=== PATIENT | female | born 1960 | race African-American/Black ===

== ENCOUNTER 2017-01-03 15:27 | Inpatient (IN) | payer MEDICAID, OTHER ==
[~2017-01-03] VITALS: Ht 177.8 cm; Wt 54.4 kg
[~2017-01-03 15:27] MED LIST: APIDRA SOL100 UNIT/1 SQ; ASPIR 8181 MG ORAL; ATORVASTATIN CA20 MG ORAL; CARAFATE1 G1 ORAL; Cyclobenzaprine Hcl ORAL; GLIPIZIDE10 MG PO; HUMALOG100 UNIT/4 SUBQ; LANTUS SOL100 UNIT/1 SUBQ; LEVEMIR FL100 UNIT/1 SUBQ; METFORMIN HCL500 M1 ORAL; NORCO 5-325 TA1 EACH ORAL; NORVASC5 MG ORAL; NOVOLOG100 UNITS1 SUBQ; PHENERGAN SUPP25 MG RECTAL; REGLAN10 MG ORAL; REGLAN5 MG ORAL; ZANTAC150 MG ORAL; ZOFRAN4 MG ORAL
[2017-01-03 15:48] VITALS: BP 159/79
[2017-01-03 16:51] LABS: TROPONIN I < 0.30 ng/mL (<=0.30)
[2017-01-03 16:52] VITALS: BP 168/78
[2017-01-03 16:53] LABS: MEAN CORPUSCULAR HEMOGLOBIN 30.2 PG (27.0-31.0); MEAN CORPUSCULAR HGB CONC 32.7 G/DL (32.0-36.0); MEAN CORPUSCULAR VOLUME 92 FL (80-99); MEAN PLATELET VOLUME 6.3 FL (6.5-10.1); PLATELET COUNT 470 K/UL (150-450); RED BLOOD COUNT 4.06 M/UL (4.20-5.40); RED CELL DISTRIBUTION WIDTH 13.8 % (11.6-14.8); WHITE BLOOD COUNT 13.9 K/UL (4.8-10.8)
[2017-01-03 16:54] LABS: ALANINE AMINOTRANSFERASE 33 U/L (3-33); ALBUMIN/GLOBULIN RATIO 1.4 (1.0-2.7); ANION GAP 23 (5-15); ASPARTATE AMINO TRANSFERASE 21 U/L (5-40); CARBON DIOXIDE 23 mEQ/L (20-30); CHLORIDE 90 mEQ/L (98-107); GLOMERULAR FILTRATION RATE > 60 mL/min (>60); HEMOLYSIS 22; LIPASE 27 U/L (< 60); POTASSIUM 4.1 mEQ/L (3.4-4.9); SODIUM 136 mEQ/L (135-145); TOTAL PROTEIN 6.9 g/dL (6.6-8.7)
[2017-01-03 16:55] LABS: APPEARANCE,URINE CLOUDY; KETONES,URINE 2+ (NEGATIVE); LEUKOCYTE ESTERASE ,URINE 3+ (NEGATIVE); NITRITE,URINE POSITIVE (NEGATIVE); PH,URINE 6 (4.5-8.0); PROTEIN,URINE 3+ (NEGATIVE); UROBILINOGEN,URINE NORMAL MG/DL (0.0-1.0)
[2017-01-03] MEDS ORDERED: DuoNeb 0.5-3(2.5)mg/3ml neb HHN PRN (17:15)
[2017-01-03] MEDS ORDERED: Piperacillin/Tazobactam 3.375 GM in NS 110 ML IVPB ONE (17:15)
[2017-01-03] MEDS ORDERED: Morphine Sulfate 4mg/ml Inj IVP PRN (17:15)
[2017-01-03] MEDS ORDERED: LORazepam Inj 2mg/ml 1ml IV PRN (17:15)
[2017-01-03] MEDS ORDERED: Miralax 17gm pkt ORAL PRN (17:15)
[2017-01-03] MEDS ORDERED: ALL DRIPS IN NORMAL SALINE MISC PRN (17:15)
[2017-01-03] MEDS ORDERED: Nitroglycerin Subl 0.4mg tab (Bottle Of 25) SL PRN (17:15)
[2017-01-03 17:16] LABS: BACTERIA,URINE MANY /HPF; RBC,URINE TNTC /HPF (0 - 2); SQUAMOUS EPITHELIAL CELL,UR MANY /LPF (NONE/OCC); WBC,URINE TNTC /HPF (0 - 2)
--- NOTE | 2017-01-03 17:28 | Emergency Room Report ---
History of Present Illness General Chief Complaint: Abdominal Pain Source: Patient Present Illness HPI 56 YO F with known IDDM and previous admit for DKA presents with abd pain, nausea/vomiting today. Denies fever/chills, urinary complaints. States compliance with Insulin. Denies chest pain, SOB. States pain is 10/10, tightening in quality, epigastric, non-radiating. Allergies: Coded Allergies: No Known Allergies (Verified Allergy, Mild, 05/04/10) Patient History Past Medical History: DM Past Surgical History: none Pertinent Family History: none Social History: Denies: alcohol use, drug use, smoking Now: No Immunizations: UTD Reviewed Nursing Documentation: PMH: Agreed, PSxH: Agreed Nursing Documentation-PMH Past Medical History: No History, Except For Hx COPD: Yes Hx Diabetes: Yes Hx Cancer: No Hx Neurological Problems: No Review of Systems All Other Systems: negative except mentioned in HPI Physical Exam Vital Signs Date Time Temp Pulse Resp B/P Pulse Ox O2 Delivery O2 Flow Rate FiO2 01/03/17 15:40 97.9 96 22 159/79 98 Room Air Sp02 EP Interpretation: reviewed, normal General Appearance: normal inspection, well appearing, alert, GCS 15, non-toxic , moderate distress Head: normocephalic, atraumatic Eyes: bilateral eye EOMI, bilateral eye PERRL ENT: normal ENT inspection, hearing grossly normal, normal voice Neck: normal inspection, full range of motion, supple, no bony tend Respiratory: normal inspection, lungs clear, normal breath sounds, no respiratory distress, no retraction, no wheezing Cardiovascular #1: regular rate, rhythm, no edema Gastrointestinal: normal inspection, normal bowel sounds, non tender, soft, no mass, no guarding, no hernia, no pulsatile mass, no rebound Genitourinary: no CVA tenderness Musculoskeletal: normal inspection, back normal, normal range of motion, Alex' s Sign negative Neurologic: normal inspection, alert, oriented x3, responsive, press tender star signal III-XII nml as tested, speech normal Psychiatric: normal inspection, judgement/insight normal, mood/affect normal Procedures Critical Care Time Critical Care Time 30 min Care for 56 YO F with abd pain, vomiting, elevated glucose. History of DKA. ? compliance with insulin VSS. Afebrile. Patient c/o abd pain, vomiting DDx includes sepsis, UTI as cause for ?DKA, HONK Labs show ~500 glucose, elevated AG. Normal K and bicarb. UA with UTI Care included IVF hydration, Insulin gtt started until AG closes, Abx for UTI Care may include administration of vasopressors started to support failing circulatory system, includes frequent re-exam, interpretation of lab studies and consultation with hospitalist/minister assistant. 30 minutes of critical care time was spent with this patient not including time spent performing separately reportable procedures. Medical Decision Making Diagnostic Impression: Primary Impression: hyperglycemia Additional Impressions: Uncontrolled diabetes mellitus Qualified Codes: E13.10 - Other specified diabetes mellitus with ketoacidosis without coma; Z79.4 - thoracic medicine specialist (current) use of insulin UTI (urinary tract infection) Qualified Codes: N30.00 - Acute cystitis without hematuria NATHAN (acute kidney injury) ER Course 56 YO F with ?DKA. Elevated glucose 500, elevated AG. +UTI with + nitrites. Mild NATHAN. Leuks elevated. IVF 2L NS hydration with Insulin gtt started in ED Empiric Abx Zosyn given Patient's abd exam is non-focal, likely pain d/t elevated glucose, UTI. Does not warrant CTAP at this time CXR negative for PNA Endorsed to Dr Raza for JEREMY admission at 526pm EKG Diagnostic Results Rate: normal Rhythm: NSR ST Segments: no acute changes ASA given to the pt in ED: No Rhythm Strip Diag. Results EP Interpretation: yes Rate: 82 Rhythm: NSR, no PVC's, no ectopy Chest X-Ray Diagnostic Results EP Interpretation: Yes Findings: no consolidation, no effusion, no pneumothorax, no acute cardiopulmonary disease Number of Views: 1 Last Vital Signs Date Time Temp Pulse Resp B/P Pulse Ox O2 Delivery O2 Flow Rate FiO2 01/03/17 16:52 97.9 67 19 168/78 98 Room Air Status: improved Disposition: ADMITTED INPATIENT Condition: Critical ARNULFO JARAMILLO M.D. Jan 03, 2017 17:28
[2017-01-03] MEDS ORDERED: Morphine Sulfate 4mg/ml Inj IVP ONE (17:30)
[2017-01-03] MEDS ORDERED: Metoclopramide 10mg/2ml Inj IVP ONE (17:30)
[2017-01-03] MEDS ORDERED: Zosyn 3.375gm inj ONE (17:42)
[2017-01-03 17:52] LABS: ABG ALLEN TEST POSITIVE; ABG BASE EXCESS -0.5; ABG PCO2 24.6 mmHg (35.0-45.0)
[2017-01-03 18:39] VITALS: BP 158/65
[2017-01-03 18:42] LABS: BAND NEUTROPHILS % (MANUAL) 2 % (0-8); LYMPHOCYTES % (MANUAL) 12 % (20-45); NEUTROPHILS % (MANUAL) 84 % (45-75); TOTAL CELLS COUNTED 100
[2017-01-03 18:43] LABS: BASOPHILS % (MANUAL) 0 % (0-2); EOSINOPHILS % (MANUAL) 0 % (0-3); PLATELET ESTIMATE INCREASED
[2017-01-03 18:47] LABS: PLATELET MORPHOLOGY NORMAL
[2017-01-03] MEDS: Heparin 5000 units/ml inj SUBQ SCH (21:17)
[2017-01-03 22:00] VITALS: BP 145/65
[2017-01-03] MEDS: Insulin Rate Change 1 Each MISC PRN ×2 (22:58→23:44)
[2017-01-03 23:00] VITALS: BP 155/66
[2017-01-04] VITALS (9 sets, daily range): BP systolic 115–154; BP diastolic 51–84
[2017-01-04] MEDS: Insulin Rate Change 1 Each MISC PRN ×3 (01:12→04:25)
[2017-01-04 06:00] LABS: MEAN CORPUSCULAR HEMOGLOBIN 30.1 PG (27.0-31.0); MEAN CORPUSCULAR HGB CONC 32.9 G/DL (32.0-36.0); MEAN CORPUSCULAR VOLUME 92 FL (80-99); MEAN PLATELET VOLUME 6.6 FL (6.5-10.1); PLATELET COUNT 424 K/UL (150-450); RED BLOOD COUNT 3.36 M/UL (4.20-5.40); RED CELL DISTRIBUTION WIDTH 13.8 % (11.6-14.8)
[2017-01-04 06:12] LABS: PROTHROMBIN TIME 9.9 SEC (9.30-11.50)
[2017-01-04] MEDS: Heparin 5000 units/ml inj SUBQ SCH ×2 (08:23→22:02)
[2017-01-04 08:34] LABS: BAND NEUTROPHILS % (MANUAL) 0 % (0-8); BASOPHILS % (MANUAL) 0 % (0-2); EOSINOPHILS % (MANUAL) 0 % (0-3); LYMPHOCYTES % (MANUAL) 20 % (20-45); NEUTROPHILS % (MANUAL) 76 % (45-75); PLATELET ESTIMATE ADEQUATE; PLATELET MORPHOLOGY NORMAL; TOTAL CELLS COUNTED 100
[2017-01-04 08:35] LABS: HYPOCHROMASIA 1+
[2017-01-04 09:28] LABS: ALANINE AMINOTRANSFERASE 24 U/L (3-33); ANION GAP 13 (5-15); ASPARTATE AMINO TRANSFERASE 15 U/L (5-40); BILIRUBIN,DIRECT 0.1 mg/dL (0.1-0.3); CALCIUM 8.3 mg/dL (8.6-10.2); CARBON DIOXIDE 28 mEQ/L (20-30); CHLORIDE 104 mEQ/L (98-107); CREATININE 0.8 mg/dL (0.5-0.9); GLOMERULAR FILTRATION RATE > 60 mL/min (>60); HEMOLYSIS 4; PHOSPHORUS 2.5 mg/dL (2.5-4.8); SODIUM 145 mEQ/L (135-145); TOTAL PROTEIN 6.4 g/dL (6.6-8.7)
--- NOTE | 2017-01-04 10:23 | History and Physical ---
History of Present Illness General Date patient seen: Jan 04, 2017 Reason for Hospitalization: Abdominal Pain Present Illness HPI 56 year old with hx of DM, DKA presented to ER with cc of abdominal pain. She had some dental work done and was not able to eat well and didn't take her insulin. She was found to be in DKA in ER, started on insulin drip and transferred to ICU. Allergies: Coded Allergies: No Known Allergies (Verified Allergy, Mild, 05/04/10) Medication History Scheduled Aspirin* (Aspir 81*), 81 MG ORAL DAILY, (Reported) Atorvastatin Calcium* (Atorvastatin Calcium*), 10 MG ORAL BEDTIME, (Reported) Glipizide (Glipizide), 10 MG PO DAILY, (Reported) Insulin Detemir (Levemir Flexpen), 20 UNITS SUBQ BEDTIME Insulin Glulisine (Apidra Solostar), 5 UNIT SQ DAILY, (Reported) Metformin Hcl* (Metformin Hcl*), 500 MG ORAL DAILY, (Reported) Patient History Healthcare decision maker Resuscitation status Advanced Directive on File Past Medical/Surgical History Past Medical/Surgical History: (1) Gastroparesis due to DM (2) Uncontrolled diabetes mellitus Review of Systems Constitutional: Reports: malaise, weakness Gastrointestinal: Reports: diarrhea, nausea Physical Exam General Appearance: WD/WN, no apparent distress Lines, tubes and drains: peripheral, central line HEENT: normocephalic, atraumatic Neck: non-tender, normal alignment Cardiovascular/Chest: normal peripheral pulses, normal rate Abdomen: normal bowel sounds, non tender Genitourinary/Rectal: normal genital exam, normal rectal exam Last 24 Hour Vital Signs Date Time Temp Pulse Resp B/P Pulse Ox O2 Delivery O2 Flow Rate FiO2 01/04/17 09:00 78 22 115/61 100 Nasal Cannula 2.0 01/04/17 08:00 98.0 77 22 135/78 100 Nasal Cannula 2.0 01/04/17 08:00 78 01/04/17 07:00 76 21 139/61 100 Nasal Cannula 2.0 01/04/17 04:00 77 01/04/17 01:00 77 21 121/54 100 Nasal Cannula 2.0 01/04/17 00:00 97.7 82 21 117/51 100 Nasal Cannula 2.0 01/03/17 23:00 100 Nasal Cannula 2.0 28 01/03/17 23:00 Nasal Cannula 2.0 28 01/03/17 23:00 84 21 155/66 100 Nasal Cannula 2.0 01/03/17 23:00 73 16 Nasal Cannula 2.0 28 01/03/17 22:28 97.9 01/03/17 22:00 97.8 97 21 145/65 100 Nasal Cannula 2.0 01/03/17 21:12 91 01/03/17 20:55 97.9 83 19 158/65 100 Room Air 01/03/17 18:39 97.9 83 19 158/65 100 Room Air 01/03/17 18:11 97.9 01/03/17 16:52 97.9 67 19 168/78 98 Room Air 01/03/17 15:48 97.9 87 22 159/79 98 Room Air 01/03/17 15:40 97.9 96 22 159/79 98 Room Air Intake and Output 01/03/17 01/04/17 19:00 07:00 Intake Total 2110 ml 1523.03 ml Output Total 300 ml Balance 2110 ml 1223.03 ml Intake IV Total 2110 ml 1523.03 ml Output Urine Total 300 ml # Voids 2 1 # Bowel Movements 3 Laboratory Tests Test 01/03/17 16:09 01/03/17 16:40 01/03/17 17:04 01/04/17 04:30 White Blood Count 13.9 K/UL (4.8-10.8) H 18.0 K/UL (4.8-10.8) H Red Blood Count 4.06 M/UL (4.20-5.40) L 3.36 M/UL (4.20-5.40) L Hemoglobin 12.2 G/DL (12.0-16.0) 10.1 G/DL (12.0-16.0) L Hematocrit 37.4 % (37.0-47.0) 30.7 % (37.0-47.0) L Mean Corpuscular Volume 92 FL (80-99) 92 FL (80-99) Mean Corpuscular Hemoglobin 30.2 PG (27.0-31.0) 30.1 PG (27.0-31.0) Mean Corpuscular Hemoglobin Concent 32.7 G/DL (32.0-36.0) 32.9 G/DL (32.0-36.0) Red Cell Distribution Width 13.8 % (11.6-14.8) 13.8 % (11.6-14.8) Platelet Count 470 K/UL (150-450) H 424 K/UL (150-450) Mean Platelet Volume 6.3 FL (6.5-10.1) L 6.6 FL (6.5-10.1) Neutrophils (%) (Auto) % (45.0-75.0) % (45.0-75.0) Lymphocytes (%) (Auto) % (20.0-45.0) % (20.0-45.0) Monocytes (%) (Auto) % (1.0-10.0) % (1.0-10.0) Eosinophils (%) (Auto) % (0.0-3.0) % (0.0-3.0) Basophils (%) (Auto) % (0.0-2.0) % (0.0-2.0) Differential Total Cells Counted 100 100 Neutrophils % (Manual) 84 % (45-75) H 76 % (45-75) H Lymphocytes % (Manual) 12 % (20-45) L 20 % (20-45) Monocytes % (Manual) 2 % (1-10) 4 % (1-10) Eosinophils % (Manual) 0 % (0-3) 0 % (0-3) Basophils % (Manual) 0 % (0-2) 0 % (0-2) Band Neutrophils 2 % (0-8) 0 % (0-8) Platelet Estimate Increased H Adequate Platelet Morphology Normal Normal Red Blood Cell Morphology Normal Sodium Level 136 mEQ/L (135-145) Potassium Level 4.1 mEQ/L (3.4-4.9) Chloride Level 90 mEQ/L (98-107) L Carbon Dioxide Level 23 mEQ/L (20-30) Anion Gap 23 (5-15) H Blood Urea Nitrogen 17 mg/dL (7-23) Creatinine 1.0 mg/dL (0.5-0.9) H Estimat Glomerular Filtration Rate > 60 mL/min (>60) Glucose Level 428 mg/dL (74-106) H Calcium Level 10.0 mg/dL (8.6-10.2) Total Bilirubin 0.3 mg/dL (0.0-1.2) Aspartate Amino Transf (AST/SGOT) 21 U/L (5-40) Alanine Aminotransferase (ALT/SGPT) 33 U/L (3-33) Alkaline Phosphatase 232 U/L (35-104) H Troponin I < 0.30 ng/mL (<=0.30) Total Protein 6.9 g/dL (6.6-8.7) Albumin 4.1 g/dL (3.5-5.2) Globulin 2.8 g/dL Albumin/Globulin Ratio 1.4 (1.0-2.7) Lipase 27 U/L (< 60) Urine Color Yellow Urine Appearance Cloudy Urine pH 6 (4.5-8.0) Urine Specific Kiefer 1.010 (1.005-1.035) Urine Protein 3+ (NEGATIVE) H Urine Glucose (UA) 4+ (NEGATIVE) H Urine Ketones 2+ (NEGATIVE) H Urine Occult Blood 5+ (NEGATIVE) H Urine Nitrite Positive (NEGATIVE) H Urine Bilirubin Negative (NEGATIVE) Urine Urobilinogen Normal MG/DL (0.0-1.0) Urine Leukocyte Esterase 3+ (NEGATIVE) H Urine RBC Tntc /HPF (0 - 2) H Urine WBC Tntc /HPF (0 - 2) H Urine Squamous Epithelial Cells Many /LPF (NONE/OCC) H Urine Bacteria Many /HPF (NONE) H Arterial Blood pH 7.542 (7.350-7.450) Arterial Blood Partial Pressure CO2 24.6 mmHg (35.0-45.0) *L Arterial Blood Partial Pressure O2 111.7 mmHg (75.0-100.0) H Arterial Blood HCO3 20.7 mmol/L (22.0-26.0) L Arterial Blood Oxygen Saturation 97.0 % (92.0-98.0) Arterial Blood Base Excess -0.5 Eric Test Positive Hypochromasia 1+ Prothrombin Time 9.9 SEC (9.30-11.50) Prothromb Time International Ratio 1.0 (0.9-1.1) Activated Partial Thromboplast Time 28 SEC (23-33) Test 01/04/17 08:45 Sodium Level 145 mEQ/L (135-145) Potassium Level 4.0 mEQ/L (3.4-4.9) Chloride Level 104 mEQ/L (98-107) Carbon Dioxide Level 28 mEQ/L (20-30) Anion Gap 13 (5-15) Blood Urea Nitrogen 14 mg/dL (7-23) Creatinine 0.8 mg/dL (0.5-0.9) Estimat Glomerular Filtration Rate > 60 mL/min (>60) Glucose Level 113 mg/dL (74-106) #H Calcium Level 8.3 mg/dL (8.6-10.2) L Phosphorus Level 2.5 mg/dL (2.5-4.8) Total Bilirubin 0.2 mg/dL (0.0-1.2) Direct Bilirubin 0.1 mg/dL (0.1-0.3) Aspartate Amino Transf (AST/SGOT) 15 U/L (5-40) Alanine Aminotransferase (ALT/SGPT) 24 U/L (3-33) Alkaline Phosphatase 175 U/L (35-104) H Total Protein 6.4 g/dL (6.6-8.7) L Albumin 3.2 g/dL (3.5-5.2) L Microbiology Date/Time Source Procedure Growth Status 01/03/17 16:40 Urine,Clean Catch Urine Culture - Preliminary Gram Negative Bacillus 1 Resulted Height (Feet): 5 Height (Inches): 10.00 Weight (Pounds): 120 Medications Current Medications Medications (Trade) Dose Ordered Sig/Usha Route PRN Reason Start Time Stop Time Status Last Admin Dose Admin Acetaminophen (Tylenol) 650 mg Q4H PRN ORAL T>100.5 01/03/17 17:15 02/02/17 17:14 01/04/17 08:13 Albuterol/ Ipratropium 3 ml 3 ml Q4H PRN HHN Shortness of Breath 01/03/17 17:15 01/08/17 17:14 Dextrose (Dextrose 50%) PRN PRN IV HYPOGLYCEMIA 01/03/17 17:15 02/02/17 17:14 Heparin Sodium (Porcine) (Heparin 5000 units/ml) 5,000 units EVERY 12 HOURS SUBQ 01/03/17 21:00 02/02/17 20:59 01/04/17 08:23 Insulin Human Regular (NovoLIN R) 5 units PRN PRN IV BS 200-299 01/03/17 17:15 02/02/17 17:14 01/03/17 22:58 Insulin Human Regular (NovoLIN R) 10 units PRN PRN IV BS=>300 01/03/17 17:15 02/02/17 17:14 01/03/17 21:59 Insulin Human Regular/Sodium Chloride (NovoLIN R/ Sodium Chloride) 101 ml @ 0 mls/hr Q24H IV 01/04/17 07:00 02/03/17 06:59 01/04/17 07:00 Lorazepam (Ativan 2mg/ml 1ml) 2 mg Q2H PRN IV agitation 01/03/17 17:15 01/10/17 17:14 Miscellaneous Medication (Insulin Rate Change) 1 ea PRN PRN MISC BLOOD SUGAR SCALE 01/03/17 17:15 02/02/17 17:14 01/04/17 04:25 Morphine Sulfate (Morphine Sulfate) 4 mg Q4H PRN IVP Severe Pain (Pain Scale 7-10) 01/03/17 17:15 01/10/17 17:14 01/03/17 21:58 Nitroglycerin (Ntg) 0.4 mg Q5M PRN SL Prn Chest Pain 01/03/17 17:15 02/02/17 17:14 Ondansetron HCl (Zofran) 4 mg Q6H PRN IVP Nausea & Vomiting 01/03/17 17:15 02/02/17 17:14 01/04/17 08:12 Polyethylene Glycol (Miralax) 17 gm DAILYPRN PRN ORAL Constipation 01/03/17 17:15 02/02/17 17:14 Sodium Chloride (Sodium Chloride 1000ml bag) 1,000 ml @ 150 mls/hr Q6H40M IV 01/03/17 20:00 02/02/17 19:59 01/04/17 08:26 Assessment/Plan Problem List: (1) DKA (diabetic ketoacidoses) ICD Codes: E13.10 - DKA (diabetic ketoacidoses) SNOMED: 460022605 (2) gastroparesis (3) Abdominal pain ICD Codes: R10.9 - Unspecified abdominal pain SNOMED: 47025166 Assessment/Plan improving insulin drip until anion gap closes IV fluids sliding scale symptomatic treatment ANTWAN DYER Jan 04, 2017 10:23
--- NOTE | 2017-01-04 10:55 | Diagnostic Imaging Report ---
Indication: PAIN Technique: One view of the chest Comparison: none Findings: There is equivocal slight increased density in the right lung apex is compared to the left. This may just be due to prominent distal first costochondral junction, which is also evident previously, but apical mass lesion not excludable. The lungs and pleural spaces are otherwise clear. The heart size is normal area Impression: Equivocal right apical opacity, mass or infiltrate not completely excludable. Recommend followup chest radiographs as indicated, consider CT if density persists No acute process otherwise
[2017-01-04] MEDS ORDERED: Nitroglycerin Subl 0.4mg tab (Bottle Of 25) SL PRN ×3 (11:30→17:15)
[2017-01-04] MEDS ORDERED: NovoLOG Insulin Flexpen SUBQ SCH ×3 (11:30)
[2017-01-04] MEDS ORDERED: DuoNeb 0.5-3(2.5)mg/3ml neb HHN PRN ×3 (13:15→17:15)
[2017-01-04] MEDS ORDERED: LORazepam Inj 2mg/ml 1ml IV PRN ×3 (13:15→17:15)
[2017-01-04] MEDS ORDERED: Morphine Sulfate 4mg/ml Inj IVP PRN ×2 (13:15→17:15)
[2017-01-04] MEDS: NovoLOG Insulin Flexpen SUBQ SCH ×3 (14:12→22:03)
[2017-01-04] MEDS: Morphine Sulfate 4mg/ml Inj IVP PRN ×2 (14:57→22:25)
[2017-01-04] MEDS ORDERED: Miralax 17gm pkt ORAL PRN ×3 (17:15)
--- NOTE | 2017-01-04 18:27 | Consultation ---
Consult Note Consult Note ID CONSULT: Dict# [id number] Assessment/Plan ASSESSMENT: 56 y/o female with: // GNR UTI - C&S pending // Elevated ALP r/o hepatobiliary disease // Leukocytosis - worsening, afebrile // DKA // NKDA // Full Code PLAN: - broaden levaquin d# 1 to cefepime given worsening leukocytosis - check abdo US - f/u C&S - monitor CBC, temperatures - monitor BMP Thanks! Will follow OLIVIA TORRES Jan 04, 2017 18:27
[2017-01-04] MEDS: Cefepime HCl 1 GM in D5W 55 ML IVPB SCH ×2 (20:24→21:06)
[2017-01-04] MEDS ORDERED: Heparin 5000 units/ml inj SUBQ SCH ×2 (21:00)
[2017-01-05] VITALS: BP 93/46
--- NOTE | 2017-01-05 00:08 | Consultation ---
DATE OF CONSULTATION: 01/04/2017 REASON FOR CONSULTATION: Urinary tract infection. HISTORY OF PRESENT ILLNESS: This is a 56-year-old, uncontrolled diabetic female admitted on 01/03/2017 with nausea, vomiting, and abdominal pain. She was found to be in diabetic ketoacidosis. She has evidence of a leukocytosis and urinalysis suggested urinary tract infection. Urine culture is now growing greater than 100,000 colony-forming units of gram-negative rods. Chest x-ray shows no acute findings. She has been started on empiric Levaquin day #1 and ID now consulted to assist in management. PAST MEDICAL HISTORY: Uncontrolled diabetes. PAST SURGICAL HISTORY: None. FAMILY HISTORY: Noncontributory. SOCIAL HISTORY: Unremarkable. ALLERGIES: No known drug allergies. MEDICATIONS: 1. Levaquin day #1. 2. Subcutaneous heparin. REVIEW OF SYSTEMS: As per history of present illness. Ten systems were reviewed. All pertinent positives and negatives noted. PHYSICAL EXAMINATION: VITAL SIGNS: Maximum temperature 98 degrees F, blood pressure 154/84, heart rate in the 90s, respiratory rate 20, and saturating 98% on room air. GENERAL: No apparent distress. Nontoxic appearing. CARDIOVASCULAR: Regular rate and rhythm. No murmurs. PULMONARY: Clear to auscultation bilaterally. ABDOMEN: Bowel sounds present. Soft, nondistended, and nontender. EXTREMITIES: Edema. LABORATORY DATA: White blood cell count is 18, hemoglobin 10.1, platelets 424,000, sodium 145, potassium 4, chloride 104, bicarbonate 28, BUN 14, and creatinine 0.8. AST 15, ALT 24, alkaline phosphatase 175, total bilirubin 0.2, albumin 3.2. Troponin negative x1. MICROBIOLOGY: On 01/03/2017, urine culture greater than 100,000 colony-forming units of gram-negative rods. IMAGING: On 01/03/2017, chest x-ray no acute findings. ASSESSMENT: 1. Gram-negative anabella, urinary tract infection. Culture and sensitivity is pending. 2. Elevated alkaline phosphatase, rule out hepatobiliary disease. 3. Leukocytosis, worsening and afebrile. 4. Diabetic ketoacidosis. 5. No known drug allergies. 6. Full Code. PLAN: 1. Broaden Levaquin day #1 to cefepime given worsening leukocytosis. 2. Check abdominal ultrasound. 3. Follow up cultures and sensitivity. 4. Monitor CBC and temperatures. 5. Monitor BMP. Chester Hickey M.D. DR: KIRA JOB#: [id number] CC:
[2017-01-05 04:00] VITALS: BP 117/69
[2017-01-05] MEDS: NovoLOG Insulin Flexpen SUBQ SCH ×7 (05:06→20:32)
[2017-01-05] MEDS: Levemir Flexpen SUBQ SCH (06:59)
[2017-01-05] MEDS: Morphine Sulfate 4mg/ml Inj IVP PRN ×2 (07:05→19:32)
[2017-01-05 08:00] VITALS: BP 138/73
[2017-01-05] MEDS: Cefepime HCl 1 GM in D5W 55 ML IVPB SCH ×2 (09:06→20:30)
[2017-01-05] MEDS: Heparin 5000 units/ml inj SUBQ SCH ×2 (09:12→20:31)
--- NOTE | 2017-01-05 09:28 | Consultation ---
DATE OF CONSULTATION: 01/05/2017 ENDOCRINOLOGY CONSULTATION CONSULTING PHYSICIAN: Johnny Nettles M.D. REFERRING PHYSICIAN: Shahzad Raza M.D. REASON FOR CONSULTATION: Diabetes management. HISTORY OF PRESENT ILLNESS: The patient is a 56-year-old female with history of insulin-dependent diabetes, who presented to the hospital 3 days ago with diabetic ketoacidosis. She was treated with IV fluids and IV insulin and after the anion gap was closed, was transferred to the floor. This morning, she is NPO for abdominal ultrasound. The glucose was too high to be read by the Accu-Chek machine and by the laboratory is over 600. The chemistry is pending. PAST MEDICAL HISTORY: 1. Gastroparesis due to diabetes. 2. Uncontrolled diabetes. MEDICATIONS: As an outpatient, reviewed and reconciled. FAMILY HISTORY: Noncontributory. REVIEW OF SYSTEMS: As per history of present illness. PHYSICAL EXAMINATION: GENERAL: The patient is arousable. VITAL SIGNS: Blood pressure is 117/69, pulse 94, temp 98.1, and respiratory rate 18. HEENT: Pupils are equal and reactive to light. Sclerae are anicteric. NECK: No jugular venous distention. HEART: Regular. LUNGS: Clear. ABDOMEN: Positive bowel sounds. EXTREMITIES: Trace edema. LABORATORY VALUES: WBC 18, hemoglobin 10, hematocrit 30.7, and platelets of 100,000. Sodium is 145, potassium 4, chloride 104, bicarb 28, BUN 14, creatinine 0.8, glucose 113 yesterday morning and now is 673. DIAGNOSES: 1. Diabetic ketoacidosis on presentation, resolved 2. Uncontrolled diabetes. 3. Abdominal pain. 4. Diarrhea. PLAN: 1. Increase intravenous fluids with normal saline 250 mL per hour. 2. Start Levemir 24 units daily, first dose now. 3. NovoLog 6 units before each meal. 4. Sliding scale insulin. Further adjustment according to blood glucose values. Thank you, Dr. Raza, for the request of this consultation. Johnny Nettles M.D. DR: EDIL/MATTY JOB#: [id number] CC: TIGRE
[2017-01-05 12:00] VITALS: BP 125/78
[2017-01-05 16:00] VITALS: BP 134/64
--- NOTE | 2017-01-05 16:11 | Infectious Diseases Prog Note ---
Assessment/Plan Assessment/Plan ASSESSMENT: 56 y/o female with: // E.coli UTI - asymptomatic // Elevated ALP - US: Essentially unremarkable exam // Leukocytosis - worsening, afebrile. No repeat CBC // DKA // NKDA // Full Code PLAN: - continue cefepime d# 2 ( ABX d# 3 / 5 ) ( 01/04 SP levaquin d# 1 ) - monitor CBC, temperatures - CBC AM - monitor BMP - glucose control Subjective Allergies: Coded Allergies: No Known Allergies (Verified Allergy, Mild, 05/04/10) Subjective remains afebrile. hungry abdominal pain, N/V improved Objective Vital Signs Last 24 Hour Vital Signs Date Time Temp Pulse Resp B/P Pulse Ox O2 Delivery O2 Flow Rate FiO2 01/05/17 12:00 97.7 86 20 125/78 97 Room Air 01/05/17 08:00 98.1 81 19 138/73 99 Room Air 01/05/17 04:00 98.1 94 18 117/69 97 Room Air 01/05/17 00:00 98.2 90 18 93/46 97 Room Air 01/04/17 22:25 98.1 01/04/17 20:00 98.1 90 22 138/67 98 Room Air 01/04/17 19:46 98 Nasal Cannula 2.0 28 01/04/17 19:46 Nasal Cannula 2.0 28 01/04/17 19:45 81 16 Nasal Cannula 2.0 28 01/04/17 16:29 98.2 93 20 154/84 98 Room Air Height (Feet): 5 Height (Inches): 10.00 Weight (Pounds): 120 General Appearance: no acute distress Respiratory/Chest: no respiratory distress Cardiovascular: normal rate, regular rhythm Abdomen: normal bowel sounds, soft, non tender, non distended Microbiology Date/Time Source Procedure Growth Status 01/03/17 16:40 Urine,Clean Catch Urine Culture - Final Escherichia Coli Complete Laboratory Tests Test 01/05/17 05:10 Glucose Level 673 mg/dL (74-106) #*H Current Medications Medications (Trade) Dose Ordered Sig/Usha Route PRN Reason Start Time Stop Time Status Last Admin Dose Admin Albuterol/ Ipratropium (DuoNeb 0.5-3(2.5)mg/3ml) 3 ml Q4H PRN HHN Shortness of Breath 01/04/17 13:15 01/09/17 13:14 Cefepime HCl 1 gm/ Dextrose 55 ml @ 110 mls/hr EVERY 12 HOURS IVPB 01/04/17 20:00 01/11/17 19:59 01/05/17 09:06 Dextrose (Dextrose 50%) STAT PRN IV Hypoglycemia 01/05/17 06:30 02/04/17 06:29 Heparin Sodium (Porcine) (Heparin 5000 units/ml) 5,000 units EVERY 12 HOURS SUBQ 01/04/17 21:00 02/03/17 20:59 01/05/17 09:12 Insulin Aspart (NovoLOG) BEFORE MEALS AND HS SUBQ 01/04/17 14:00 02/03/17 13:59 01/05/17 05:06 Insulin Aspart (NovoLOG) 8 units NOVOTIAC SUBQ 01/05/17 06:30 02/04/17 06:29 Insulin Detemir (Levemir) 24 units DAILY SUBQ 01/05/17 09:00 02/04/17 08:59 01/05/17 06:59 Lorazepam (Ativan 2mg/ml 1ml) 2 mg Q2H PRN IV agitation 01/04/17 13:15 01/11/17 13:14 01/04/17 18:32 Morphine Sulfate (Morphine Sulfate) 4 mg Q4H PRN IVP Severe Pain (Pain Scale 7-10) 01/04/17 13:15 01/11/17 13:14 01/05/17 07:05 Nitroglycerin (Ntg) 0.4 mg Q5M PRN SL Prn Chest Pain 01/04/17 11:30 02/03/17 11:29 Ondansetron HCl (Zofran) 4 mg Q6H PRN IVP Nausea & Vomiting 01/04/17 17:15 02/03/17 17:14 01/04/17 18:24 Polyethylene Glycol 17 gm 17 gm DAILYPRN PRN ORAL Constipation 01/04/17 17:15 02/03/17 17:14 Sodium Chloride (Sodium Chloride 1000ml bag) 1,000 ml @ 150 mls/hr Q6H40M IV 01/05/17 06:00 02/04/17 05:59 01/05/17 12:37 OLIVIA TORRES Jan 05, 2017 16:11
[2017-01-05 19:00] VITALS: BP 152/84
[2017-01-05] MEDS ORDERED: Tubing IV Secondary IV ONE (21:27)
[2017-01-05] MEDS ORDERED: NS 550ML IV ONE (21:27)
[2017-01-06 00:29] VITALS: BP 157/79
[2017-01-06] MEDS: Morphine Sulfate 4mg/ml Inj IVP PRN ×5 (00:50→21:36)
[2017-01-06 04:15] VITALS: BP 152/80
[2017-01-06] MEDS: NovoLOG Insulin Flexpen SUBQ SCH ×7 (06:25→21:35)
[2017-01-06 07:13] LABS: BASOPHILS % (AUTO) 0.9 % (0.0-2.0); EOSINOPHILS % (AUTO) 1.6 % (0.0-3.0); LYMPHOCYTES % (AUTO) 32.1 % (20.0-45.0); MEAN CORPUSCULAR HEMOGLOBIN 30.3 PG (27.0-31.0); MEAN CORPUSCULAR HGB CONC 33.4 G/DL (32.0-36.0); MEAN CORPUSCULAR VOLUME 91 FL (80-99); MEAN PLATELET VOLUME 6.5 FL (6.5-10.1); MONOCYTES % (AUTO) 4.3 % (1.0-10.0); PLATELET COUNT 427 K/UL (150-450); RED BLOOD COUNT 3.33 M/UL (4.20-5.40); RED CELL DISTRIBUTION WIDTH 13.7 % (11.6-14.8); WHITE BLOOD COUNT 8.8 K/UL (4.8-10.8)
--- NOTE | 2017-01-06 07:42 | General Progress Note ---
Assessment/Plan Problem List: (1) DKA (diabetic ketoacidoses) ICD Codes: E13.10 - DKA (diabetic ketoacidoses) SNOMED: 425126822 (2) gastroparesis (3) UTI (urinary tract infection) ICD Codes: N39.0 - Urinary tract infection, site not specified SNOMED: 74765589 Qualifiers: Qualified Codes: N30.00 - Acute cystitis without hematuria (4) Uncontrolled diabetes mellitus ICD Codes: E11.65 - Type 2 diabetes mellitus with hyperglycemia SNOMED: 591388807 Qualifiers: Qualified Codes: E13.10 - Other specified diabetes mellitus with ketoacidosis without coma; Z79.4 - snf (current) use of insulin (5) hyperglycemia Assessment/Plan continue Levemir 24 units qam reduce Novolog to 6 units ac tid continue SSI Subjective Allergies: Coded Allergies: No Known Allergies (Verified Allergy, Mild, 05/04/10) All Systems: reviewed and negative except above Subjective events noted glycemic control improved Objective Last 24 Hour Vital Signs Date Time Temp Pulse Resp B/P Pulse Ox O2 Delivery O2 Flow Rate FiO2 01/06/17 04:15 98.7 71 18 152/80 99 Room Air 01/06/17 00:29 97.3 19 157/79 98 Room Air 01/05/17 20:02 98.1 01/05/17 19:00 97.2 86 20 152/84 100 Room Air 01/05/17 19:00 97 Nasal Cannula 2.0 28 01/05/17 19:00 85 16 Nasal Cannula 2.0 28 01/05/17 19:00 Nasal Cannula 2.0 28 01/05/17 16:00 98.1 81 20 134/64 99 Room Air 01/05/17 12:00 97.7 86 20 125/78 97 Room Air 01/05/17 09:39 Nasal Cannula 2.0 28 01/05/17 09:39 80 16 Nasal Cannula 2.0 28 01/05/17 09:39 98 Nasal Cannula 2.0 28 01/05/17 08:00 98.1 81 19 138/73 99 Room Air Intake and Output 01/05/17 01/06/17 19:00 07:00 Intake Total 955 ml 240 ml Output Total 200 ml Balance 955 ml 40 ml Intake Oral 240 ml IV Total 955 ml Emesis 200 ml # Voids 1 6 Laboratory Tests 01/06/17 04:35: White Blood Count 8.8, Red Blood Count 3.33L, Hemoglobin 10.1L, Hematocrit 30.3L , Mean Corpuscular Volume 91, Mean Corpuscular Hemoglobin 30.3, Mean Corpuscular Hemoglobin Concent 33.4, Red Cell Distribution Width 13.7, Platelet Count 427, Mean Platelet Volume 6.5, Neutrophils (%) (Auto) 61.0, Lymphocytes (% ) (Auto) 32.1, Monocytes (%) (Auto) 4.3, Eosinophils (%) (Auto) 1.6, Basophils ( %) (Auto) 0.9 Height (Feet): 5 Height (Inches): 10.00 Weight (Pounds): 120 General Appearance: no apparent distress EENT: pale conjunctivae Neck: normal alignment Cardiovascular: normal rate Respiratory/Chest: decreased breath sounds Abdomen: normal bowel sounds Objective Current Medications Medications (Trade) Dose Ordered Sig/Usha Route PRN Reason Start Time Stop Time Status Last Admin Dose Admin Albuterol/ Ipratropium (DuoNeb 0.5-3(2.5)mg/3ml) 3 ml Q4H PRN HHN Shortness of Breath 01/04/17 13:15 01/09/17 13:14 Cefepime HCl 1 gm/ Dextrose 55 ml @ 110 mls/hr EVERY 12 HOURS IVPB 01/04/17 20:00 01/11/17 19:59 01/05/17 20:30 Dextrose (Dextrose 50%) STAT PRN IV Hypoglycemia 01/05/17 06:30 02/04/17 06:29 01/05/17 16:41 Heparin Sodium (Porcine) (Heparin 5000 units/ml) 5,000 units EVERY 12 HOURS SUBQ 01/04/17 21:00 02/03/17 20:59 01/05/17 20:31 Insulin Aspart (NovoLOG) BEFORE MEALS AND HS SUBQ 01/04/17 14:00 02/03/17 13:59 01/06/17 06:26 Insulin Aspart (NovoLOG) 8 units NOVOTIAC SUBQ 01/05/17 06:30 02/04/17 06:29 01/06/17 06:25 Insulin Detemir (Levemir) 24 units DAILY SUBQ 01/05/17 09:00 02/04/17 08:59 01/05/17 06:59 Lorazepam (Ativan 2mg/ml 1ml) 2 mg Q2H PRN IV agitation 01/04/17 13:15 01/11/17 13:14 01/04/17 18:32 Morphine Sulfate (Morphine Sulfate) 4 mg Q4H PRN IVP Severe Pain (Pain Scale 7-10) 01/04/17 13:15 01/11/17 13:14 01/06/17 06:21 Nitroglycerin (Ntg) 0.4 mg Q5M PRN SL Prn Chest Pain 01/04/17 11:30 02/03/17 11:29 Ondansetron HCl (Zofran) 4 mg Q6H PRN IVP Nausea & Vomiting 01/04/17 17:15 02/03/17 17:14 01/06/17 00:46 Polyethylene Glycol 17 gm 17 gm DAILYPRN PRN ORAL Constipation 01/04/17 17:15 02/03/17 17:14 Sodium Chloride (Sodium Chloride 1000ml bag) 1,000 ml @ 150 mls/hr Q6H40M IV 01/05/17 06:00 02/04/17 05:59 01/06/17 02:00 Item Value Date Time Bedside Blood Glucose 123 mg/dl H 01/06/17 0626 Bedside Blood Glucose 114 mg/dl 01/05/17 2100 Bedside Blood Glucose 204 mg/dl H 01/05/17 1700 Bedside Blood Glucose 191 mg/dl H 01/05/17 1150 Bedside Blood Glucose 673 mg/dl H 01/05/17 0659 NILS OSORIO Jan 06, 2017 07:42
[2017-01-06 08:12] VITALS: BP 140/68
[2017-01-06] MEDS: Heparin 5000 units/ml inj SUBQ SCH ×2 (09:01→21:36)
[2017-01-06] MEDS: Levemir Flexpen SUBQ SCH (09:09)
[2017-01-06] MEDS: Cefepime HCl 1 GM in D5W 55 ML IVPB SCH ×2 (09:11→21:37)
[2017-01-06 11:27] VITALS: BP 151/81
[2017-01-06 16:00] VITALS: BP 137/78
[2017-01-06 20:00] VITALS: BP 142/76
--- NOTE | 2017-01-06 23:24 | Pulmonology Progress Note ---
Assessment/Plan Problems: (1) DKA (diabetic ketoacidoses) (2) gastroparesis (3) Abdominal pain Assessment/Plan Plan improving insulin drip until anion gap closes IV fluids sliding scale Subjective ROS Limited/Unobtainable: No Constitutional: Reports: anorexia, fatigue Neurologic: Reports: weakness Allergies: Coded Allergies: No Known Allergies (Verified Allergy, Mild, 05/04/10) Objective Last 24 Hour Vital Signs Date Time Temp Pulse Resp B/P Pulse Ox O2 Delivery O2 Flow Rate FiO2 01/06/17 20:00 99.1 75 20 142/76 100 Room Air 01/06/17 18:57 95 Nasal Cannula 2.0 01/06/17 18:57 Nasal Cannula 2.0 01/06/17 18:57 73 16 Nasal Cannula 2.0 01/06/17 16:00 97.6 80 21 137/78 99 Room Air 01/06/17 11:27 98.1 74 20 151/81 99 Room Air 01/06/17 08:18 100 Room Air 01/06/17 08:18 79 16 Room Air 01/06/17 08:18 Room Air 01/06/17 08:12 97.7 82 20 140/68 99 Room Air 01/06/17 04:15 98.7 71 18 152/80 99 Room Air 01/06/17 00:29 97.3 19 157/79 98 Room Air Intake and Output 01/05/17 01/06/17 19:00 07:00 Intake Total 955 ml 240 ml Output Total 200 ml Balance 955 ml 40 ml Intake Oral 240 ml IV Total 955 ml Emesis 200 ml # Voids 1 6 General Appearance: other - skin turgor improving HEENT: normocephalic, atraumatic, PERRL Respiratory/Chest: chest wall non-tender, decreased breath sounds, accessory muscle use Breasts: no masses Cardiovascular: normal peripheral pulses, normal rate, regular rhythm, no JVD Abdomen: normal bowel sounds, soft, non tender, no organomegaly Genitourinary: normal external genitalia Extremities: no cyanosis Skin: no rash, no lesions 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, no motor/sensory deficits Laboratory Tests 01/06/17 04:35: White Blood Count 8.8, Red Blood Count 3.33L, Hemoglobin 10.1L, Hematocrit 30.3L , Mean Corpuscular Volume 91, Mean Corpuscular Hemoglobin 30.3, Mean Corpuscular Hemoglobin Concent 33.4, Red Cell Distribution Width 13.7, Platelet Count 427, Mean Platelet Volume 6.5, Neutrophils (%) (Auto) 61.0, Lymphocytes (% ) (Auto) 32.1, Monocytes (%) (Auto) 4.3, Eosinophils (%) (Auto) 1.6, Basophils ( %) (Auto) 0.9 Current Medications Medications (Trade) Dose Ordered Sig/Usha Route PRN Reason Start Time Stop Time Status Last Admin Dose Admin Albuterol/ Ipratropium (DuoNeb 0.5-3(2.5)mg/3ml) 3 ml Q4H PRN HHN Shortness of Breath 01/04/17 13:15 01/09/17 13:14 Cefepime HCl 1 gm/ Dextrose 55 ml @ 110 mls/hr EVERY 12 HOURS IVPB 01/04/17 20:00 01/11/17 19:59 01/06/17 21:37 Dextrose (Dextrose 50%) STAT PRN IV Hypoglycemia 01/05/17 06:30 02/04/17 06:29 01/05/17 16:41 Heparin Sodium (Porcine) (Heparin 5000 units/ml) 5,000 units EVERY 12 HOURS SUBQ 01/04/17 21:00 02/03/17 20:59 01/06/17 21:36 Insulin Aspart (NovoLOG) BEFORE MEALS AND HS SUBQ 01/04/17 14:00 02/03/17 13:59 01/06/17 21:35 Insulin Aspart (NovoLOG) 6 units NOVOTIAC SUBQ 01/06/17 11:50 02/05/17 11:49 Insulin Detemir (Levemir) 24 units DAILY SUBQ 01/05/17 09:00 02/04/17 08:59 01/06/17 09:09 Lorazepam (Ativan 2mg/ml 1ml) 2 mg Q2H PRN IV agitation 01/04/17 13:15 01/11/17 13:14 01/04/17 18:32 Morphine Sulfate (Morphine Sulfate) 4 mg Q4H PRN IVP Severe Pain (Pain Scale 7-10) 01/04/17 13:15 01/11/17 13:14 01/06/17 21:36 Nitroglycerin (Ntg) 0.4 mg Q5M PRN SL Prn Chest Pain 01/04/17 11:30 02/03/17 11:29 Ondansetron HCl (Zofran) 4 mg Q6H PRN IVP Nausea & Vomiting 01/04/17 17:15 02/03/17 17:14 01/06/17 00:46 Polyethylene Glycol 17 gm 17 gm DAILYPRN PRN ORAL Constipation 01/04/17 17:15 02/03/17 17:14 Sodium Chloride (Sodium Chloride 1000ml bag) 1,000 ml @ 150 mls/hr Q6H40M IV 01/05/17 06:00 02/04/17 05:59 01/06/17 21:37 ANTWAN DYER Jan 06, 2017 23:24
[2017-01-06] MEDS ORDERED: NOVOLOG100 UNITS1 SUBQ (23:26)
[2017-01-06] MEDS ORDERED: LEVEMIR FL100 UNIT/1 SUBQ (23:26)
[2017-01-07 00:20] VITALS: BP 151/82
[2017-01-07] MEDS: Morphine Sulfate 4mg/ml Inj IVP PRN (01:48)
[2017-01-07 04:11] VITALS: BP 144/71
--- NOTE | 2017-01-07 06:35 | General Progress Note ---
Assessment/Plan Problem List: (1) DKA (diabetic ketoacidoses) ICD Codes: E13.10 - DKA (diabetic ketoacidoses) SNOMED: 515199722 (2) gastroparesis (3) UTI (urinary tract infection) ICD Codes: N39.0 - Urinary tract infection, site not specified SNOMED: 89747553 Qualifiers: Qualified Codes: N30.00 - Acute cystitis without hematuria (4) Uncontrolled diabetes mellitus ICD Codes: E11.65 - Type 2 diabetes mellitus with hyperglycemia SNOMED: 806040145 Qualifiers: Qualified Codes: E13.10 - Other specified diabetes mellitus with ketoacidosis without coma; Z79.4 - alf (current) use of insulin (5) hyperglycemia Assessment/Plan glycemic control improved she did not receive mealtime Novolog 6 units yesterday continue Levemir 24 units qam reduce Novolog to 3 units ac tid continue SSI Subjective Allergies: Coded Allergies: No Known Allergies (Verified Allergy, Mild, 05/04/10) All Systems: reviewed and negative except above Subjective events noted glycemic control improved Objective Last 24 Hour Vital Signs Date Time Temp Pulse Resp B/P Pulse Ox O2 Delivery O2 Flow Rate FiO2 01/07/17 04:11 98.3 70 18 144/71 96 Room Air 01/07/17 00:20 98.2 78 19 151/82 96 Room Air 01/06/17 20:00 99.1 75 20 142/76 100 Room Air 01/06/17 18:57 95 Nasal Cannula 2.0 01/06/17 18:57 Nasal Cannula 2.0 01/06/17 18:57 73 16 Nasal Cannula 2.0 01/06/17 16:00 97.6 80 21 137/78 99 Room Air 01/06/17 11:27 98.1 74 20 151/81 99 Room Air 01/06/17 08:18 100 Room Air 01/06/17 08:18 79 16 Room Air 01/06/17 08:18 Room Air 01/06/17 08:12 97.7 82 20 140/68 99 Room Air Intake and Output 01/06/17 01/07/17 19:00 07:00 Intake Total 1110 ml 1555 ml Balance 1110 ml 1555 ml Intake Oral 360 ml IV Total 750 ml 1555 ml # Voids 3 2 # Bowel Movements 1 Height (Feet): 5 Height (Inches): 10.00 Weight (Pounds): 120 General Appearance: no apparent distress EENT: pale conjunctivae Neck: normal alignment Cardiovascular: normal peripheral pulses Respiratory/Chest: decreased breath sounds Abdomen: normal bowel sounds Pelvis: normal external exam Edema: no edema noted Arm (L), no edema noted Arm (R), no edema noted Leg (L), no edema noted Leg (R), no edema noted Pedal (L), no edema noted Pedal (R), no edema noted Generalized Objective Item Value Date Time Bedside Blood Glucose 131 mg/dl H 01/06/17 213 Bedside Blood Glucose 93 mg/dl 01/06/17 1654 Bedside Blood Glucose 144 mg/dl H 01/06/17 1325 Bedside Blood Glucose 123 mg/dl H 01/06/17 0909 Bedside Blood Glucose 123 mg/dl H 01/06/17 0626 Current Medications Medications (Trade) Dose Ordered Sig/Usha Route PRN Reason Start Time Stop Time Status Last Admin Dose Admin Albuterol/ Ipratropium (DuoNeb 0.5-3(2.5)mg/3ml) 3 ml Q4H PRN HHN Shortness of Breath 01/04/17 13:15 01/09/17 13:14 Cefepime HCl 1 gm/ Dextrose 55 ml @ 110 mls/hr EVERY 12 HOURS IVPB 01/04/17 20:00 01/11/17 19:59 01/06/17 21:37 Dextrose (Dextrose 50%) STAT PRN IV Hypoglycemia 01/05/17 06:30 02/04/17 06:29 01/05/17 16:41 Heparin Sodium (Porcine) (Heparin 5000 units/ml) 5,000 units EVERY 12 HOURS SUBQ 01/04/17 21:00 02/03/17 20:59 01/06/17 21:36 Insulin Aspart (NovoLOG) BEFORE MEALS AND HS SUBQ 01/04/17 14:00 02/03/17 13:59 01/06/17 21:35 Insulin Aspart (NovoLOG) 6 units NOVOTIAC SUBQ 01/06/17 11:50 02/05/17 11:49 Insulin Detemir (Levemir) 24 units DAILY SUBQ 01/05/17 09:00 02/04/17 08:59 01/06/17 09:09 Lorazepam (Ativan 2mg/ml 1ml) 2 mg Q2H PRN IV agitation 01/04/17 13:15 01/11/17 13:14 01/04/17 18:32 Morphine Sulfate (Morphine Sulfate) 4 mg Q4H PRN IVP Severe Pain (Pain Scale 7-10) 01/04/17 13:15 01/11/17 13:14 01/07/17 01:48 Nitroglycerin (Ntg) 0.4 mg Q5M PRN SL Prn Chest Pain 01/04/17 11:30 02/03/17 11:29 Ondansetron HCl (Zofran) 4 mg Q6H PRN IVP Nausea & Vomiting 01/04/17 17:15 02/03/17 17:14 01/06/17 00:46 Polyethylene Glycol 17 gm 17 gm DAILYPRN PRN ORAL Constipation 01/04/17 17:15 02/03/17 17:14 Sodium Chloride (Sodium Chloride 1000ml bag) 1,000 ml @ 150 mls/hr Q6H40M IV 01/05/17 06:00 02/04/17 05:59 01/07/17 05:04 NILS OSORIO Jan 07, 2017 06:35
[2017-01-07] MEDS ORDERED: NovoLOG Insulin Flexpen SUBQ SCH (06:45)
[2017-01-07] MEDS: NovoLOG Insulin Flexpen SUBQ SCH (06:53)
[2017-01-07] MEDS: Cefepime HCl 1 GM in D5W 55 ML IVPB SCH (09:00)
[2017-01-07] MEDS: Heparin 5000 units/ml inj SUBQ SCH (09:00)
[2017-01-07] MEDS: Levemir Flexpen SUBQ SCH (09:15)
--- NOTE | 2017-01-09 09:08 | Discharge Summary ---
Discharge Summary Hospital Course Date of Admission Jan 03, 2017 at 18:22 Date of Discharge Jan 07, 2017 at 10:25 Admitting Diagnosis HYPERGLYCEMIA HPI Senia Bennett is a 56 year old female who was admitted on Jan 03, 2017 at 18:22 for Hyperglycemia Hospital Course dc summary #[id number] Discharge Medications New Medications: Insulin Aspart (Novolog Flexpen) 100 Unit/1 Ml Insuln.pen 6 UNITS SUBQ NOVOTIAC for 30 Days, EA Insulin Detemir (Levemir Flexpen) 100 Unit/1 Ml Insuln.pen 24 UNITS SUBQ DAILY for 30 Days, EA Continued Medications: Aspirin* (Aspir 81*) 81 Mg Tablet.dr 81 MG ORAL DAILY, TAB Atorvastatin Calcium* (Atorvastatin Calcium*) 20 Mg Tablet 10 MG ORAL BEDTIME, TAB Discharge Condition Upon Discharge: stable Discharge Disposition Patient was discharged to Home (01) Discharge Diagnoses: Discharge Instructions Discharge Instructions Special Instructions I have been assigned to complete a D/C Summary on this account. I was not involved in the patient management Laura Fields NP (Vanchtein) Jan 09, 2017 09:08
--- NOTE | 2017-01-09 22:29 | Discharge Summary 2 SIG ---
DATE OF ADMISSION: 01/03/2017 DATE OF DISCHARGE: 01/07/2017 REASON FOR HOSPITALIZATION: 56-year-old female with a history of insulin-dependent diabetes mellitus and previous admission for DKA, presented with abdominal pain, nausea, and vomiting. She stated that she was compliant with the insulin regimen. She denied chest pain or shortness of breath. She described abdominal pain as 10/10, epigastric, and nonradiating. She denied fever or chills. She denied flank pain, dysuria, or urinary frequency. Workup in the emergency room revealed blood sugar of 500 with Accu-Chek and 428 by laboratory. Urine analysis was positive for evidence of infection with pyuria, positive nitrites, and many bacteria, and also revealed +2 ketones, +4 glucose, and +2 protein. The patient with leukocytosis of 13.9 and anion gap of 23. Chest x-ray negative for any acute cardiopulmonary pathology. EKG showed normal sinus rhythm. Abdominal exam was benign. The patient declined CT of abdomen and pelvis. The patient was given 2 L IV fluids in the emergency room, started on empiric antibiotic for UTI and on insulin drip. The patient admitted for further management. ADMITTING DIAGNOSES: 1. Hyperglycemia. 2. Diabetic ketoacidosis. 3. Diabetes, out of control. 4. Urinary tract infection. HOSPITAL STAY: The patient admitted to ICU on insulin drip. Insulin drip was managed as per protocol. Director Of Distribution consult was requested. When anion gap closed, insulin drip was discontinued and changed to regimen of short and long acting insulin. Director Of Distribution followed and optimized anti- glycemic regimen. IV fluid discontinued. Urine culture grew E. coli. Intravenous antibiotic administered. ID followed. Antibiotic discontinued prior to discharge from the hospital. Leukocytosis resolved. Abdominal pain resolved, was likely related to DKA. Reinforce compliance with antiglycemic medications/insulin. Nausea and vomiting were managed with antiemetic on as needed basis, and resolved after blood sugar was controlled, likely gastroparesis.Patient was able to tolerate diet without difficulties. DISCHARGE DIAGNOSES: 1. Diabetic ketoacidosis. 2. Insulin-dependent diabetes mellitus, out of control. 3. Urinary tract infection. 4. Gastroparesis. DISCHARGE MEDICATIONS: See medication reconciliation list. DISCHARGE INSTRUCTION: The patient discharged home. Follow up with the primary medical doctor. Reinforced need for routine follow up for diabetes management. Shahzad Raza M.D. I have been assigned to dictate discharge summary on this account and I was not involved in the patient's management. Laura Fields (Vanchtein) NTejaPTeja DR: ALEKSANDRA JOB#: [id number] CC: TIGRE
--- NOTE | 2017-01-12 13:43 | Cardiology Report ---
APPROVED REPORT EKG Measurement Heart [id number] Normal sinus rhythm Biatrial enlargement Abnormal ECG
--- NOTE | 2017-01-15 09:50 | Diagnostic Imaging Report ---
Indication: Abnormal liver function tests, abdominal pain, vomiting Technique: Gong-scale and duplex images of the upper abdomen were obtained Comparison: 12/19/2013 Findings: . Gallbladder is unremarkable, without stones, wall thickening, nor pericholecystic fluid. Sonographic Loaiza's sign is negative. Common bile duct measures 6 mm in diameter. No intrahepatic biliary ductal there is a 4 cm right lower pole renal cyst dilatation. Liver demonstrates normal echogenicity, no focal abnormality. Portal vein and hepatic veins are patent.. Pancreas is unremarkable. Spleen is unremarkable. Left kidney measures 10.5 cm in length. Right kidney measures 11.7 cm length. Both kidneys demonstrate normal echogenicity. There is no hydronephrosis. No focal abnormality. . Non-aneurysmal abdominal aorta. Comparison prior exam, no significant interim change Impression: Essentially unremarkable exam, unchanged from 12/19/2013 Incidental finding right lower pole renal cyst
== END 2017-01-07 10:25 | disposition home or self-care (01) | DRG 420 ==
LOC: EDBEDREQ 17:08 → EDBEDREQSVC 17:21 → EMR 18:18 → ICU 18:22 → EDBEDREQ 18:40 → 4W 01-04 11:45
DX: E13.10 Other specified diabetes mellitus with ketoacidosis without coma (principal); N39.0 Urinary tract infection, site not specified; K31.84 Gastroparesis; Z79.4 Long term (current) use of insulin; D72.829 Elevated white blood cell count, unspecified; B96.20 Unspecified Escherichia coli [E. coli] as the cause of diseases classified elsewhere
CPT/HCPCS: 36415; 36600; 71010; 76700; 80048; 80053; 80076; 81003; 82803; 82947; 82962; 83690; 84100; 84484; 85007; 85025; 85610; 85730; 87086; 87181; 93005; 94664; 94760; J1815; J2405; J2765; S5561

== ENCOUNTER 2017-01-10 17:31 | Inpatient (IN) | payer MEDICAID ==
[~2017-01-10] VITALS: Ht 157.5 cm; Wt 51.7 kg
[2017-01-10 18:56] LABS: EOSINOPHILS % (AUTO) 0.3 % (0.0-3.0); LYMPHOCYTES % (AUTO) 20.8 % (20.0-45.0); MEAN CORPUSCULAR HEMOGLOBIN 31.2 PG (27.0-31.0); MEAN CORPUSCULAR HGB CONC 31.8 G/DL (32.0-36.0); MEAN CORPUSCULAR VOLUME 98 FL (80-99); MEAN PLATELET VOLUME 5.8 FL (6.5-10.1); MONOCYTES % (AUTO) 3.4 % (1.0-10.0); NEUTROPHILS % (AUTO) 74.6 % (45.0-75.0); PLATELET COUNT 496 K/UL (150-450); RED BLOOD COUNT 3.82 M/UL (4.20-5.40); RED CELL DISTRIBUTION WIDTH 14.7 % (11.6-14.8); WHITE BLOOD COUNT 9.2 K/UL (4.8-10.8)
[2017-01-10 18:58] LABS: APPEARANCE,URINE CLEAR; KETONES,URINE 3+ (NEGATIVE); LEUKOCYTE ESTERASE ,URINE NEGATIVE (NEGATIVE); NITRITE,URINE NEGATIVE (NEGATIVE); PH,URINE 5 (4.5-8.0); PROTEIN,URINE 2+ (NEGATIVE); UROBILINOGEN,URINE NORMAL MG/DL (0.0-1.0)
[2017-01-10 19:07] VITALS: BP 147/54
[2017-01-10 19:08] LABS: ALANINE AMINOTRANSFERASE 23 U/L (3-33); ASPARTATE AMINO TRANSFERASE 17 U/L (5-40); CALCIUM 9.1 mg/dL (8.6-10.2); CARBON DIOXIDE 18 mEQ/L (20-30); CREATININE 1.1 mg/dL (0.5-0.9); GLOMERULAR FILTRATION RATE > 60 mL/min (>60); MAGNESIUM 1.6 mg/dL (1.7-2.5); TOTAL PROTEIN 6.6 g/dL (6.6-8.7)
[2017-01-10 19:09] LABS: ALBUMIN/GLOBULIN RATIO 1.3 (1.0-2.7); ANION GAP 32 (5-15); CHLORIDE 81 mEQ/L (98-107); HEMOLYSIS 34; POTASSIUM 4.7 mEQ/L (3.4-4.9); SODIUM 131 mEQ/L (135-145)
[2017-01-10 19:14] LABS: RBC,URINE 0-2 /HPF (0 - 2)
[2017-01-10 19:15] LABS: BACTERIA,URINE FEW /HPF; SQUAMOUS EPITHELIAL CELL,UR FEW /LPF (NONE/OCC); WBC,URINE 0-2 /HPF (0 - 2)
[2017-01-10 21:00] VITALS: BP 161/72
[2017-01-10 22:00] VITALS: BP 149/62
[2017-01-10 23:00] VITALS: BP 105/40
[2017-01-10] MEDS ORDERED: DuoNeb 0.5-3(2.5)mg/3ml neb HHN PRN (23:15)
[2017-01-10] MEDS ORDERED: [UNRECOGNIZED DRUG - REMARK] MISC PRN (23:15)
[2017-01-10] MEDS ORDERED: LORazepam Inj 2mg/ml 1ml IV PRN (23:15)
[2017-01-10] MEDS ORDERED: Nitroglycerin Subl 0.4mg tab (Bottle Of 25) SL PRN (23:15)
[2017-01-10] MEDS ORDERED: Miralax 17gm pkt ORAL PRN (23:15)
[2017-01-11] VITALS (18 sets, daily range): BP systolic 105–163; BP diastolic 6–87
--- NOTE | 2017-01-11 00:11 | Emergency Room Report ---
History of Present Illness General Chief Complaint: Abnormal Labs Source: Patient Present Illness HPI Patient is a 56-year-old female who presented after increased difficulty with elevated blood sugar. The patient gradual onset of symptoms. The patient had recently been hospitalized for diabetic ketoacidosis. Patient had not been able to fill her Levemir. The patient been taking her short acting insulin. The patient reports having some increased thirst as well as blurring her vision and dizziness. She had not been having any black or bloody stools. Patient reported having some nausea and vomiting Allergies: Coded Allergies: No Known Allergies (Verified Allergy, Mild, 05/04/10) Patient History Now: No Reviewed Nursing Documentation: PMH: Agreed, PSxH: Agreed Nursing Documentation-PMH Past Medical History: No History, Except For Hx COPD: Yes Hx Diabetes: Yes Hx Cancer: No Hx Neurological Problems: No Review of Systems All Other Systems: negative except mentioned in HPI Physical Exam Vital Signs Date Time Temp Pulse Resp B/P Pulse Ox O2 Delivery O2 Flow Rate FiO2 01/10/17 17:52 98.1 90 20 172/64 100 Room Air Sp02 EP Interpretation: reviewed, normal General Appearance: normal inspection, well appearing, no apparent distress, alert, GCS 15 Head: atraumatic ENT: normal ENT inspection, hearing grossly normal, normal voice Neck: normal inspection, full range of motion, supple, no bony tend Respiratory: normal inspection, lungs clear, normal breath sounds, no respiratory distress, no retraction, no wheezing Cardiovascular #1: regular rate, rhythm, no edema Gastrointestinal: normal inspection, normal bowel sounds, non tender, soft, no guarding, no hernia Genitourinary: no CVA tenderness Musculoskeletal: normal inspection, back normal, normal range of motion Neurologic: normal inspection, alert, oriented x3, responsive, 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 Total critical care time excluding procedures approximately 45 minutes. Medical Decision Making Diagnostic Impression: Primary Impression: Abnormal laboratory test result Additional Impression: DKA (diabetic ketoacidoses) ER Course Patient presented for generalized weakness and dizziness.Patient presented for generalized weakness. Differential diagnosis included was not limited to anemia , diabetic ketoacidosis, urinary tract infection, electrolyte abnormality, hypothyroidism, myocardial infarction, myasthenia gravis, dehydration, among others. Because of complexity of patient's case laboratory testing and imaging studies were ordered. EKG interpreted by me showed sinus rhythm with a rate of [address] or T wave changes. Rhythm strip showed normal sinus rhythm without PVCs or ectopy rate in the 70s. Patient started on IV fluids as well as insulin drip.Laboratory testing showed elevation of the blood sugar as well as an anion gap. Potassium was noted to be normal. Patient noted have an anion gap a 32. Dr. Raza was contacted for inpatient management due to complexity of medical condition. Laboratory Tests Test 01/10/17 18:12 01/10/17 20:49 White Blood Count 9.2 K/UL (4.8-10.8) Red Blood Count 3.82 M/UL (4.20-5.40) L Hemoglobin 11.9 G/DL (12.0-16.0) L Hematocrit 37.5 % (37.0-47.0) Mean Corpuscular Volume 98 FL (80-99) Mean Corpuscular Hemoglobin 31.2 PG (27.0-31.0) H Mean Corpuscular Hemoglobin Concent 31.8 G/DL (32.0-36.0) L Red Cell Distribution Width 14.7 % (11.6-14.8) Platelet Count 496 K/UL (150-450) H Mean Platelet Volume 5.8 FL (6.5-10.1) L Neutrophils (%) (Auto) 74.6 % (45.0-75.0) Lymphocytes (%) (Auto) 20.8 % (20.0-45.0) Monocytes (%) (Auto) 3.4 % (1.0-10.0) Eosinophils (%) (Auto) 0.3 % (0.0-3.0) Basophils (%) (Auto) 1.0 % (0.0-2.0) Urine Color Pale yellow Urine Appearance Clear Urine pH 5 (4.5-8.0) Urine Specific [place] 1.010 (1.005-1.035) Urine Protein 2+ (NEGATIVE) H Urine Glucose (UA) 4+ (NEGATIVE) H Urine Ketones 3+ (NEGATIVE) H Urine Occult Blood 1+ (NEGATIVE) H Urine Nitrite Negative (NEGATIVE) Urine Bilirubin Negative (NEGATIVE) Urine Urobilinogen Normal MG/DL (0.0-1.0) Urine Leukocyte Esterase Negative (NEGATIVE) Urine RBC 0-2 /HPF (0 - 2) Urine WBC 0-2 /HPF (0 - 2) Urine Squamous Epithelial Cells Few /LPF (NONE/OCC) Urine Bacteria Few /HPF (NONE) Sodium Level 131 mEQ/L (135-145) L Potassium Level 4.7 mEQ/L (3.4-4.9) Chloride Level 81 mEQ/L (98-107) L Carbon Dioxide Level 18 mEQ/L (20-30) L Anion Gap 32 (5-15) H Blood Urea Nitrogen 12 mg/dL (7-23) Creatinine 1.1 mg/dL (0.5-0.9) H Estimate Glomerular Filtration Rate > 60 mL/min (>60) Glucose Level 583 mg/dL (74-106) *H Calcium Level 9.1 mg/dL (8.6-10.2) Magnesium Level 1.6 mg/dL (1.7-2.5) L Total Bilirubin 0.3 mg/dL (0.0-1.2) Aspartate Amino Transferase (AST) 17 U/L (5-40) Alanine Aminotransferase (ALT) 23 U/L (3-33) Alkaline Phosphatase 172 U/L (35-104) H Total Protein 6.6 g/dL (6.6-8.7) Albumin 3.8 g/dL (3.5-5.2) Globulin 2.8 g/dL Albumin/Globulin Ratio 1.3 (1.0-2.7) Acetone Level Positive-large (NEGATIVE) Chest X-Ray Diagnostic Results EP Interpretation: Yes Findings: no consolidation, no effusion, no pneumothorax, no acute cardiopulmonary disease Number of Views: 1 Last Vital Signs Date Time Temp Pulse Resp B/P Pulse Ox O2 Delivery O2 Flow Rate FiO2 01/10/17 22:00 97.8 76 18 149/62 100 Room Air Status: unchanged Disposition: ADMITTED INPATIENT Condition: Serious Referrals: [employer] [facility],REFERRIN (PCP) Epifanio Giordano Jan 11, 2017 00:11
[2017-01-11] MEDS: Morphine Sulfate 4mg/ml Inj IVP PRN ×2 (00:14→08:24)
[2017-01-11] MEDS: Insulin Rate Change 1 Each MISC PRN ×11 (00:28→12:04)
[2017-01-11 05:28] LABS: INR 1.1 (0.9-1.1); PROTHROMBIN TIME 10.7 SEC (9.30-11.50)
[2017-01-11 05:42] LABS: ANION GAP 16 (5-15); CALCIUM 8.5 mg/dL (8.6-10.2); CARBON DIOXIDE 28 mEQ/L (20-30); CHLORIDE 95 mEQ/L (98-107); CREATININE 0.9 mg/dL (0.5-0.9); GLOMERULAR FILTRATION RATE > 60 mL/min (>60); HEMOLYSIS 4; POTASSIUM 3.3 mEQ/L (3.4-4.9); SODIUM 139 mEQ/L (135-145)
[2017-01-11 07:05] LABS: BILIRUBIN,DIRECT 0.1 mg/dL (0.1-0.3); PHOSPHORUS 2.7 mg/dL (2.5-4.8); TOTAL PROTEIN 5.5 g/dL (6.6-8.7)
[2017-01-11] MEDS ORDERED: Aspirin EC 81mg tab ORAL SCH (09:00)
[2017-01-11] MEDS ORDERED: Heparin 5000 units/ml inj SUBQ SCH (09:00)
--- NOTE | 2017-01-11 09:49 | Consultation ---
DATE OF CONSULTATION: 01/11/2017 ENDOCRINOLOGY CONSULTATION CONSULTING PHYSICIAN: Johnny Nettles M.D. REFERRING PHYSICIAN: Shahzad Raza M.D. REASON FOR CONSULTATION: Diabetes management. HISTORY OF PRESENT ILLNESS: The patient is a 56-year-old female with history of type 1 diabetes who was recently admitted to [facility] with diabetic ketoacidosis and she had multiple episodes of ketoacidosis in the past. After she was discharged, she was not able to get her Levemir or basal insulin, therefore, her blood sugar raised and presented to emergency department with diabetic ketoacidosis and admitted to the ICU for IV insulin treatment. PAST MEDICAL HISTORY: 1. Type 1 diabetes, out of control. 2. Gastroparesis, not complied with medication. MEDICATIONS: Medications reviewed and reconciled. FAMILY HISTORY: Noncontributory. REVIEW OF SYSTEMS: As per history of present illness. PHYSICAL EXAMINATION: VITAL SIGNS: Temperature 98 degrees, pulse 90, respiratory rate 16, and blood pressure 145/67. HEENT: Pupils are equal and reactive to light. Sclerae are anicteric. NECK: No JVD. No thyromegaly. LUNGS: Clear. HEART: Regular rate and rhythm. ABDOMEN: Positive bowel sounds. EXTREMITIES: Trace edema. LABORATORY DATA: WBC 9, hemoglobin 11.9, hematocrit 37.5, and platelets of 196,000. Sodium is 139, potassium 3.3, chloride 95, bicarbonate 28, BUN 11, creatinine 0.9, and glucose of 149 with an anion gap of 32. DIAGNOSES: 1. Diabetic ketoacidosis recurrence due to noncompliance with insulin. 2. Type 1 diabetes out of control. 3. Gastroparesis. PLAN: For the time being, the patient needs to be treated with IV fluid and IV insulin. Once the anion gap is closed, the patient will be started on subcutaneous insulin. During recent admission, she was on Levemir 24 units daily and NovoLog 3 units before each meal. I will follow her during the hospital stay. Thank you, Dr. Raza, for the request of this consultation. Johnny Nettles M.D. DR: EDIL/tena JOB#: [id number] CC: TIGRE
--- NOTE | 2017-01-11 10:11 | Diagnostic Imaging Report ---
Indication: SOB Technique: One view of the chest Comparison: 01/03/2017 Findings: Lungs and pleural spaces are clear. Heart size is normal. No significant change Impression: No acute process
--- NOTE | 2017-01-11 12:48 | History and Physical ---
History of Present Illness General Date patient seen: Jan 11, 2017 Reason for Hospitalization: Abnormal Labs Present Illness HPI 56-year-old female with hx of DM and recurrent DKA, who presented after increased difficulty with elevated blood sugar. . Patient had not been able to fill her Levemir. The patient been taking her short acting insulin. The patient reports having some increased thirst as well as blurring her vision and dizziness. She was diagnosed to have DKA and admitted to ICu. Allergies: Coded Allergies: No Known Allergies (Verified Allergy, Mild, 05/04/10) Medication History Scheduled Aspirin* (Aspir 81*), 81 MG ORAL DAILY, (Reported) Atorvastatin Calcium* (Atorvastatin Calcium*), 10 MG ORAL BEDTIME, (Reported) Glipizide (Glipizide), 10 MG PO DAILY, (Reported) Insulin Aspart (Novolog Flexpen), 6 UNITS SUBQ NOVOTIAC Insulin Detemir (Levemir Flexpen), 20 UNITS SUBQ BEDTIME Insulin Detemir (Levemir Flexpen), 24 UNITS SUBQ DAILY Insulin Glulisine (Apidra Solostar), 5 UNIT SQ DAILY, (Reported) Metformin Hcl* (Metformin Hcl*), 500 MG ORAL DAILY, (Reported) Patient History Healthcare decision maker none Resuscitation status Full Code Advanced Directive on File No Past Medical/Surgical History Past Medical/Surgical History: (1) DKA (diabetic ketoacidoses) (2) gastroparesis Review of Systems All Other Systems: negative except mentioned in HPI Physical Exam General Appearance: WD/WN Lines, tubes and drains: peripheral, central line HEENT: normocephalic, atraumatic Neck: non-tender, normal alignment Respiratory/Chest: chest wall non-tender, lungs clear Cardiovascular/Chest: normal peripheral pulses, normal rate, regular rhythm Abdomen: normal bowel sounds, non tender Last 24 Hour Vital Signs Date Time Temp Pulse Resp B/P Pulse Ox O2 Delivery O2 Flow Rate FiO2 01/11/17 12:00 97.7 83 21 130/61 100 Room Air 01/11/17 12:00 79 01/11/17 11:00 76 16 125/59 99 Room Air 01/11/17 10:00 78 15 155/74 99 Room Air 01/11/17 09:00 82 20 105/52 96 Room Air 01/11/17 08:00 81 01/11/17 08:00 97.0 84 17 105/53 98 Room Air 01/11/17 07:35 88 16 Room Air 21 01/11/17 07:00 80 22 163/71 99 Room Air 01/11/17 06:00 90 16 145/67 100 Room Air 01/11/17 05:00 70 13 150/46 100 Room Air 01/11/17 04:00 66 13 150/6 100 Room Air 01/11/17 04:00 77 01/11/17 03:00 80 13 133/68 100 Room Air 01/11/17 02:00 81 13 135/64 100 Room Air 01/11/17 01:00 81 13 127/61 100 Room Air 01/11/17 00:51 81 18 Room Air 21 01/11/17 00:00 84 01/11/17 00:00 97.8 84 13 126/49 100 Room Air 01/10/17 23:00 80 15 105/40 100 Room Air 01/10/17 22:00 97.8 76 18 149/62 100 Room Air 01/10/17 21:27 88 01/10/17 21:26 84 12 139/62 100 Room Air 01/10/17 21:00 97.8 86 12 161/72 100 Room Air 01/10/17 19:07 86 12 147/54 100 Room Air 01/10/17 17:52 98.1 90 20 172/64 100 Room Air Intake and Output 01/10/17 01/11/17 19:00 07:00 Intake Total 1045.14 ml Output Total 850 ml Balance 195.14 ml Intake Oral 0 ml IV Total 1045.14 ml Output Urine Total 800 ml Emesis 50 ml # Voids 1 Laboratory Tests Test 01/10/17 18:12 01/10/17 20:49 01/11/17 04:40 White Blood Count 9.2 K/UL (4.8-10.8) Red Blood Count 3.82 M/UL (4.20-5.40) L Hemoglobin 11.9 G/DL (12.0-16.0) L Hematocrit 37.5 % (37.0-47.0) Mean Corpuscular Volume 98 FL (80-99) Mean Corpuscular Hemoglobin 31.2 PG (27.0-31.0) H Mean Corpuscular Hemoglobin Concent 31.8 G/DL (32.0-36.0) L Red Cell Distribution Width 14.7 % (11.6-14.8) Platelet Count 496 K/UL (150-450) H Mean Platelet Volume 5.8 FL (6.5-10.1) L Neutrophils (%) (Auto) 74.6 % (45.0-75.0) Lymphocytes (%) (Auto) 20.8 % (20.0-45.0) Monocytes (%) (Auto) 3.4 % (1.0-10.0) Eosinophils (%) (Auto) 0.3 % (0.0-3.0) Basophils (%) (Auto) 1.0 % (0.0-2.0) Urine Color Pale yellow Urine Appearance Clear Urine pH 5 (4.5-8.0) Urine Specific [place] 1.010 (1.005-1.035) Urine Protein 2+ (NEGATIVE) H Urine Glucose (UA) 4+ (NEGATIVE) H Urine Ketones 3+ (NEGATIVE) H Urine Occult Blood 1+ (NEGATIVE) H Urine Nitrite Negative (NEGATIVE) Urine Bilirubin Negative (NEGATIVE) Urine Urobilinogen Normal MG/DL (0.0-1.0) Urine Leukocyte Esterase Negative (NEGATIVE) Urine RBC 0-2 /HPF (0 - 2) Urine WBC 0-2 /HPF (0 - 2) Urine Squamous Epithelial Cells Few /LPF (NONE/OCC) Urine Bacteria Few /HPF (NONE) Sodium Level 131 mEQ/L (135-145) L 139 mEQ/L (135-145) Potassium Level 4.7 mEQ/L (3.4-4.9) 3.3 mEQ/L (3.4-4.9) L Chloride Level 81 mEQ/L (98-107) L 95 mEQ/L (98-107) L Carbon Dioxide Level 18 mEQ/L (20-30) L 28 mEQ/L (20-30) Anion Gap 32 (5-15) H 16 (5-15) H Blood Urea Nitrogen 12 mg/dL (7-23) 11 mg/dL (7-23) Creatinine 1.1 mg/dL (0.5-0.9) H 0.9 mg/dL (0.5-0.9) Estimat Glomerular Filtration Rate > 60 mL/min (>60) > 60 mL/min (>60) Glucose Level 583 mg/dL (74-106) *H 149 mg/dL (74-106) #H Calcium Level 9.1 mg/dL (8.6-10.2) 8.5 mg/dL (8.6-10.2) L Magnesium Level 1.6 mg/dL (1.7-2.5) L Total Bilirubin 0.3 mg/dL (0.0-1.2) 0.2 mg/dL (0.0-1.2) Aspartate Amino Transf (AST/SGOT) 17 U/L (5-40) 12 U/L (5-40) Alanine Aminotransferase (ALT/SGPT) 23 U/L (3-33) 18 U/L (3-33) Alkaline Phosphatase 172 U/L (35-104) H 136 U/L (35-104) H Total Protein 6.6 g/dL (6.6-8.7) 5.5 g/dL (6.6-8.7) L Albumin 3.8 g/dL (3.5-5.2) 3.1 g/dL (3.5-5.2) L Globulin 2.8 g/dL Albumin/Globulin Ratio 1.3 (1.0-2.7) Acetone Level Positive-large (NEGATIVE) Prothrombin Time 10.7 SEC (9.30-11.50) Prothromb Time International Ratio 1.1 (0.9-1.1) Activated Partial Thromboplast Time 26 SEC (23-33) Phosphorus Level 2.7 mg/dL (2.5-4.8) Direct Bilirubin 0.1 mg/dL (0.1-0.3) Height (Feet): 5 Height (Inches): 2.00 Weight (Pounds): 114 Medications Current Medications Medications (Trade) Dose Ordered Sig/Usha Route PRN Reason Start Time Stop Time Status Last Admin Dose Admin Acetaminophen (Tylenol) 650 mg Q4H PRN ORAL Fever 01/10/17 23:15 02/09/17 23:14 Albuterol/ Ipratropium (DuoNeb 0.5-3(2.5)mg/3ml) 3 ml Q4H PRN HHN Shortness of Breath 01/10/17 23:15 01/15/17 23:14 Aspirin 81 mg 81 mg DAILY ORAL 01/11/17 09:00 02/10/17 08:59 01/11/17 08:11 Dextrose (Dextrose 50%) PRN PRN IV HYPOGLYCEMIA 01/11/17 05:15 02/10/17 05:14 Heparin Sodium (Porcine) (Heparin 5000 units/ml) 5,000 units EVERY 12 HOURS SUBQ 01/11/17 09:00 02/10/17 08:59 Insulin Human Regular (NovoLIN R) 5 units PRN PRN IV BS 200-299 01/11/17 05:15 02/10/17 05:14 01/11/17 11:01 Insulin Human Regular (NovoLIN R) 10 units PRN PRN IV BS=>300 01/11/17 05:15 02/10/17 05:14 Insulin Human Regular/Sodium Chloride (NovoLIN R/ Sodium Chloride) 101 ml @ 0 mls/hr Q24H IV 01/11/17 07:38 02/10/17 05:14 01/11/17 08:10 Lorazepam (Ativan 2mg/ml 1ml) 2 mg Q2H PRN IV agitation 01/10/17 23:15 01/17/17 23:14 Miscellaneous Medication 1 ea 1 ea PRN PRN MISC Per rx protocol 01/11/17 05:15 02/10/17 05:14 01/11/17 12:04 Morphine Sulfate (Morphine Sulfate) 4 mg Q4H PRN IVP Severe Pain (Pain Scale 7-10) 01/10/17 23:15 01/17/17 23:14 01/11/17 08:24 Nitroglycerin (Ntg) 0.4 mg Q5M PRN SL Prn Chest Pain 01/10/17 23:15 02/09/17 23:14 Ondansetron HCl (Zofran) 4 mg Q6H PRN IVP Nausea & Vomiting 01/10/17 23:15 02/09/17 23:14 01/11/17 08:24 Polyethylene Glycol (Miralax) 17 gm DAILYPRN PRN ORAL Constipation 01/10/17 23:15 02/09/17 23:14 Sodium Chloride (Sodium Chloride 1000ml bag) 1,000 ml @ 150 mls/hr Q6H40M IV 01/11/17 00:00 02/10/17 00:00 01/11/17 05:00 Assessment/Plan Problem List: (1) DKA (diabetic ketoacidoses) ICD Codes: E13.10 - DKA (diabetic ketoacidoses) SNOMED: 041934861 (2) hyperglycemia Assessment/Plan insulin drip iv fluids supplement electrolytes. ANTWAN YDER Jan 11, 2017 12:48
[2017-01-11] MEDS ORDERED: NovoLOG Insulin Flexpen SUBQ ONE ×2 (14:00→17:00)
[2017-01-11] MEDS ORDERED: Levemir Flexpen SUBQ SCH (14:00)
[2017-01-11] MEDS ORDERED: NovoLOG Insulin Flexpen SUBQ SCH (16:30)
--- NOTE | 2017-01-12 15:11 | Cardiology Report ---
APPROVED REPORT EKG Measurement Heart [id number] [place] [id number] Suspect arm lead reversal, interpretation assumes no reversal Normal sinus rhythm Biatrial enlargement Rightward axis Pulmonary disease pattern Nonspecific ST abnormality Abnormal ECG
--- NOTE | 2017-01-12 22:29 | Discharge Summary 2 SIG ---
DATE OF ADMISSION: 01/10/2017 DATE OF DISCHARGE: 01/11/2017 CONSULTANTS: Johnny Nettles M.D. BRIEF HOSPITAL COURSE: The patient is a 56-year-old female with history of diabetes mellitus and recurrent DKA presented to the hospital with elevated blood sugar. The patient was recently discharged and was not able to get her Levemir or basal insulin. Her blood sugar raised and she presented to the ED, where on evaluation was found to be in diabetic ketoacidosis. She was admitted to ICU for IV insulin treatment. Her anion gap closed. She was given subcutaneous insulin injections and was started on diabetic diet. Blood sugar was better and due to rapid unexpected improvement in symptoms, the patient was eventually discharged home. Stressed need for compliance with medication. FINAL DIAGNOSES: 1. Diabetic ketoacidosis. 2. Hyperglycemia. 3. Type 1 diabetes out of control. 4. Gastroparesis. Shahzad Raza M.D. I have been assigned to dictate discharge summary on this account and I was not involved in the patient's management. Elena Herr N.P. DR: GERDA JOB#: [id number] CC: TIGRE
== END 2017-01-11 18:00 | disposition home or self-care (01) | DRG 420 ==
LOC: EMR 19:31 → ICU 19:42 → EDBEDREQ 19:55
DX: E10.10 Type 1 diabetes mellitus with ketoacidosis without coma (principal); K31.84 Gastroparesis; E10.43 Type 1 diabetes mellitus with diabetic autonomic (poly)neuropathy; Z91.14 Patient's other noncompliance with medication regimen
CPT/HCPCS: 36415; 71010; 80048; 80053; 80076; 81003; 82009; 82962; 83735; 84100; 85025; 85610; 85730; 93005; 94664; J1815; J2405; S5561

== ENCOUNTER 2017-08-01 07:28 | Emergency (ER) | payer MEDICAID, OTHER ==
[~2017-08-01] VITALS: Ht 160 cm; Wt 61.2 kg
[2017-08-01] MEDS ORDERED: APIDRA SOL100 UNIT/1 SQ (07:45)
[2017-08-01] MEDS ORDERED: LEVEMIR FL100 UNIT/1 SUBQ (07:45)
--- NOTE | 2017-08-01 08:08 | Emergency Room Report ---
History of Present Illness General Chief Complaint: Abdominal Pain Source: Patient Present Illness HPI Patient 56-year-old female who presented after increased abdominal pain and vomiting. Patient reported having low blood sugars over the past few days. Patient prior history of insulin-dependent diabetes. The patient states she is followed by Dr. Fagan. Patient was not noted have any fever. She reported having some epigastric pain. Allergies: Coded Allergies: No Known Allergies (Verified Allergy, Mild, 05/04/10) Patient History Now: No Reviewed Nursing Documentation: PMH: Agreed, PSxH: Agreed Nursing Documentation-PMH Hx Hypertension: Yes Hx COPD: Yes Hx Diabetes: Yes Hx Cancer: No Hx Gastrointestinal Problems: Yes Hx Neurological Problems: No Hx Weakness: Yes Hx Fatigue: Yes Review of Systems All Other Systems: negative except mentioned in HPI Physical Exam Vital Signs Date Time Temp Pulse Resp B/P (MAP) Pulse Ox O2 Delivery O2 Flow Rate FiO2 08/01/17 07:40 98.1 91 20 161/77 100 Room Air Sp02 EP Interpretation: reviewed, normal General Appearance: normal inspection, well appearing, no apparent distress, alert, GCS 15 Head: atraumatic ENT: normal ENT inspection, hearing grossly normal, normal voice Neck: normal inspection, full range of motion, supple, no bony tend Respiratory: normal inspection, lungs clear, normal breath sounds, no respiratory distress, no retraction, no wheezing Cardiovascular #1: regular rate, rhythm, no edema Gastrointestinal: normal inspection, normal bowel sounds, non tender, soft, no guarding, no hernia Genitourinary: no CVA tenderness Musculoskeletal: normal inspection, back normal, normal range of motion Neurologic: normal inspection, alert, oriented x3, responsive, softwood faller III-XII nml as tested, speech normal Psychiatric: normal inspection, judgement/insight normal, mood/affect normal Skin: normal inspection, normal color, no rash Medical Decision Making Diagnostic Impression: Primary Impression: Gastroparesis due to DM ER Course Patient presented for abdominal pain. Differential diagnoses included ischemic bowel, appendicitis, perforated viscus, abdominal aortic aneurysm, inferior myocardial infarction, viral gastroenteritis Because of complexity of patient's case laboratory testing and imaging studies were ordered. Patient was given IV fluids as well as anti-emetics or persistent vomiting. [facility] of the persistent emesis and dehydration. EKG Diagnostic Results Rate: normal Rhythm: NSR ST Segments: no acute changes ASA given to the pt in ED: No Rhythm Strip Diag. Results EP Interpretation: yes Rhythm: NSR, no PVC's, no ectopy Last Vital Signs Date Time Temp Pulse Resp B/P (MAP) Pulse Ox O2 Delivery O2 Flow Rate FiO2 08/01/17 07:40 98.1 91 20 161/77 100 Room Air Status: unchanged [facility] Condition: Serious Epifanio Giordano Aug 01, 2017 08:08
[2017-08-01] MEDS ORDERED: Metoclopramide 10mg/2ml Inj IVP ONE (08:15)
[2017-08-01] MEDS ORDERED: Famotidine 20 MG/ 2ML VIAL IVP ONE (08:15)
[2017-08-01 08:21] LABS: BASOPHILS % (AUTO) 0.7 % (0.0-2.0); EOSINOPHILS % (AUTO) 0.1 % (0.0-3.0); LYMPHOCYTES % (AUTO) 16.7 % (20.0-45.0); MEAN CORPUSCULAR HEMOGLOBIN 29.7 PG (27.0-31.0); MEAN CORPUSCULAR HGB CONC 31.5 G/DL (32.0-36.0); MEAN CORPUSCULAR VOLUME 94 FL (80-99); MONOCYTES % (AUTO) 1.8 % (1.0-10.0); NEUTROPHILS % (AUTO) 80.8 % (45.0-75.0); PLATELET COUNT 346 K/UL (150-450); RED BLOOD COUNT 4.02 M/UL (4.20-5.40); RED CELL DISTRIBUTION WIDTH 13.6 % (11.6-14.8); WHITE BLOOD COUNT 7.7 K/UL (4.8-10.8)
[2017-08-01 08:34] LABS: ALANINE AMINOTRANSFERASE 21 U/L (3-33); ALBUMIN/GLOBULIN RATIO 1.3 (1.0-2.7); ANION GAP 14 (5-15); ASPARTATE AMINO TRANSFERASE 18 U/L (5-40); CALCIUM 9.7 mg/dL (8.6-10.2); CARBON DIOXIDE 25 mEQ/L (20-30); CHLORIDE 98 mEQ/L (98-107); CREATININE 0.8 mg/dL (0.5-0.9); GLOMERULAR FILTRATION RATE > 60 mL/min (>60); HEMOLYSIS 3; LIPASE 18 U/L (< 60); MAGNESIUM 1.6 mg/dL (1.7-2.5); POTASSIUM 4.2 mEQ/L (3.4-4.9); SODIUM 137 mEQ/L (135-145); TOTAL PROTEIN 6.9 g/dL (6.6-8.7)
[2017-08-01 09:11] VITALS: BP 158/68
[2017-08-01 10:00] VITALS: BP 165/82
[2017-08-01 11:00] VITALS: BP 174/79
[2017-08-01 11:23] LABS: APPEARANCE,URINE CLEAR; KETONES,URINE 3+ (NEGATIVE); LEUKOCYTE ESTERASE ,URINE NEGATIVE (NEGATIVE); NITRITE,URINE NEGATIVE (NEGATIVE); PH,URINE 5 (4.5-8.0); PROTEIN,URINE 3+ (NEGATIVE); UROBILINOGEN,URINE NORMAL MG/DL (0.0-1.0)
[2017-08-01 12:00] VITALS: BP 162/71
[2017-08-01 12:10] LABS: BACTERIA,URINE OCCASIONAL /HPF; HYALINE CASTS, URINE 0-2 /LPF; MUCUS,URINE FEW /LPF (NONE/OCC); SQUAMOUS EPITHELIAL CELL,UR OCCASIONAL /LPF (NONE/OCC); WBC,URINE 0-2 /HPF (0 - 2)
[2017-08-01 14:06] VITALS: BP 142/64
[2017-08-01 14:22] VITALS: BP 142/64
== END 2017-08-01 14:25 | disposition short-term general hospital (02) ==
LOC: EMR 08:20
DX: E11.43 Type 2 diabetes mellitus with diabetic autonomic (poly)neuropathy (principal); K31.84 Gastroparesis; I10 Essential (primary) hypertension; J44.9 Chronic obstructive pulmonary disease, unspecified
CPT/HCPCS: 36415; 80053; 81003; 82009; 82962; 83690; 83735; 85025; 96361; 96374; 96375; 99285; J2405; J2765; S0028

== ENCOUNTER 2017-11-26 09:04 | Inpatient (IN) | payer MEDICAID, OTHER ==
[~2017-11-26] VITALS: Ht 157.5 cm; Wt 52.2 kg
[2017-11-26 09:17] VITALS: BP 173/74
--- NOTE | 2017-11-26 09:37 | Emergency Room Report ---
History of Present Illness General Chief Complaint: Abnormal Labs Source: Patient, Family Member Present Illness HPI 57-year-old female history of diabetes, gastroparesis, presenting with 3 days of nausea, decreased oral intake. Patient complaining of epigastric pain, a lot of nausea. Also found to have high blood sugar this morning, blood sugar in the 400s, patient took her insulin this morning. Patient has been admitted in the past for intractable nausea and vomiting Allergies: Coded Allergies: No Known Allergies (Verified Allergy, Mild, 05/04/10) Patient History Past Medical History: see triage record Past Surgical History: none Pertinent Family History: none Reviewed Nursing Documentation: PMH: Agreed, PSxH: Agreed Nursing Documentation-PMH Hx Hypertension: Yes Hx COPD: Yes Hx Diabetes: Yes Hx Cancer: No Hx Gastrointestinal Problems: Yes Hx Neurological Problems: No Hx Weakness: Yes Hx Fatigue: Yes Review of Systems All Other Systems: negative except mentioned in HPI Physical Exam Vital Signs Date Time Temp Pulse Resp B/P (MAP) Pulse Ox O2 Delivery O2 Flow Rate FiO2 11/26/17 09:07 98.1 89 20 158/83 96 Room Air Sp02 EP Interpretation: reviewed, normal General Appearance: alert, GCS 15, non-toxic, moderate distress Head: normocephalic, atraumatic Eyes: bilateral eye normal inspection, bilateral eye PERRL, bilateral eye EOMI ENT: normal ENT inspection, normal pharynx, normal voice, moist mucus membranes Neck: normal inspection, full range of motion, supple Respiratory: normal inspection, lungs clear, normal breath sounds, no respiratory distress, no retraction, no wheezing, speaking full sentences, chest symmetrical Cardiovascular #1: normal inspection, regular rate, rhythm, no edema, normal capillary refill Cardiovascular #2: 2+ radial (R), 2+ radial (L) Gastrointestinal: other - mild epigastric tenernes no guarding nontender elsewhere on abdomen Musculoskeletal: normal inspection, back normal, normal range of motion, non- tender Neurologic: normal inspection, alert, oriented x3, responsive, motor strength/ tone normal, sensory intact, normal gait, speech normal Psychiatric: normal inspection, judgement/insight normal, memory normal Skin: normal inspection, normal color, no rash, warm/dry, well hydrated, normal turgor Medical Decision Making Diagnostic Impression: Primary Impression: Intractable nausea and vomiting Additional Impression: Hyperglycemia ER Course 57-year-old female presenting with nausea, vomiting, epigastric abdominal pain for 3 days DDX: DKA, gastroparesis, dehydration, electrolyte disturbance, gastritis, gastroenteritis, at this time her abdomen is very soft nontender with the exception of the epigastric region Plan: Obtain labs, ua, EKG, CXR Fluids, Zofran ER course: Patient has been monitored during ED stay, HD stable Fluids and Zofran given fluids given hyperglycemia - NOT dka Disposition: Patient is to be admitted to TELE D/W Dr Cade who has accepted pt for admission Please note that this Emergency Department Report was dictated using Access [employer] analyst technology software, occasionally this can lead to erroneous entry secondary to interpretation by the dictation equipment. EKG Diagnostic Results EP Interpretation: Yes Rate: normal Rhythm: NSR ST Segments: No acute changes ASA given to patient: No Rhythm Strip EP Interpretation: Yes Rate: 80 Rhythm: NSR, no PVCs, no ectopy Chest X-ray CXR: Ordered: Yes 1 view Indication: Epigastric pain EP interpretation: Yes Interpretation: No consolidation, no effusion, no PTX, no acute cardiopulmonary disease, no free air under diaphragm Impression: No acute disease Electronically signed by Ángel Carballo MD Laboratory Tests Test 11/26/17 09:30 11/26/17 10:05 White Blood Count 8.4 K/UL (4.8-10.8) Red Blood Count 4.57 M/UL (4.20-5.40) Hemoglobin 13.5 G/DL (12.0-16.0) Hematocrit 42.9 % (37.0-47.0) Mean Corpuscular Volume 94 FL (80-99) Mean Corpuscular Hemoglobin 29.6 PG (27.0-31.0) Mean Corpuscular Hemoglobin Concent 31.5 G/DL (32.0-36.0) L Red Cell Distribution Width 13.3 % (11.6-14.8) Platelet Count 284 K/UL (150-450) Mean Platelet Volume 7.5 FL (6.5-10.1) Neutrophils (%) (Auto) % (45.0-75.0) Lymphocytes (%) (Auto) % (20.0-45.0) Monocytes (%) (Auto) % (1.0-10.0) Eosinophils (%) (Auto) % (0.0-3.0) Basophils (%) (Auto) % (0.0-2.0) Differential Total Cells Counted 100 Neutrophils % (Manual) 85 % (45-75) H Lymphocytes % (Manual) 10 % (20-45) L Monocytes % (Manual) 4 % (1-10) Eosinophils % (Manual) 0 % (0-3) Basophils % (Manual) 0 % (0-2) Band Neutrophils 1 % (0-8) Platelet Estimate Adequate Platelet Morphology Normal Red Blood Cell Morphology Normal Urine Color Pale yellow Urine Appearance Clear Urine pH 5 (4.5-8.0) Urine Specific [place] 1.020 (1.005-1.035) Urine Protein 4+ (NEGATIVE) H Urine Glucose (UA) 4+ (NEGATIVE) H Urine Ketones 2+ (NEGATIVE) H Urine Occult Blood 2+ (NEGATIVE) H Urine Nitrite Negative (NEGATIVE) Urine Bilirubin Negative (NEGATIVE) Urine Urobilinogen Normal MG/DL (0.0-1.0) Urine Leukocyte Esterase Negative (NEGATIVE) Urine RBC 2-4 /HPF (0 - 2) H Urine WBC 2-4 /HPF (0 - 2) Urine Squamous Epithelial Cells Many /LPF (NONE/OCC) H Urine Bacteria Few /HPF (NONE) Urine Fine Granular Casts /LPF (NONE) Urine Coarse Granular Casts 2-4 /LPF (NONE) H Sodium Level 132 MMOL/L (136-145) L Potassium Level 4.5 MMOL/L (3.5-5.1) Chloride Level 94 MMOL/L (98-107) L Carbon Dioxide Level 27 MMOL/L (21-32) Anion Gap 11 mmol/L (5-15) Blood Urea Nitrogen 25 mg/dL (7-18) H Creatinine 1.5 MG/DL (0.55-1.30) H Estimate Glomerular Filtration Rate 43.5 mL/min (>60) Glucose Level 481 MG/DL (74-106) H Calcium Level 7.8 MG/DL (8.5-10.1) L Magnesium Level 1.9 MG/DL (1.8-2.4) Total Bilirubin 0.3 MG/DL (0.2-1.0) Aspartate Amino Transferase (AST) 31 U/L (15-37) Alanine Aminotransferase (ALT) 24 U/L (12-78) Alkaline Phosphatase 203 U/L (46-116) H Total Protein 7.8 G/DL (6.4-8.2) Albumin 3.4 G/DL (3.4-5.0) Globulin 4.4 g/dL Albumin/Globulin Ratio 0.8 (1.0-2.7) L Acetone Level Positive-small (NEGATIVE) Arterial Blood pH 7.410 (7.350-7.450) Arterial Blood Partial Pressure CO2 39.1 mmHg (35.0-45.0) Arterial Blood Partial Pressure O2 84.0 mmHg (75.0-100.0) Arterial Blood HCO3 24.5 mmol/L (22.0-26.0) Arterial Blood Oxygen Saturation 95.0 % (92.0-98.0) Arterial Blood Base Excess 0 Eric Test Positive Last Vital Signs Date Time Temp Pulse Resp B/P (MAP) Pulse Ox O2 Delivery O2 Flow Rate FiO2 11/26/17 09:07 98.1 89 20 158/83 96 Room Air Disposition: ADMITTED INPATIENT Condition: Serious Referrals: [employer] [facility] ARELIS,SARATH (PCP) Ángel Carballo M.D. Nov 26, 2017 09:37
[2017-11-26 09:58] LABS: HEMATOCRIT 42.9 % (37.0-47.0); HEMOGLOBIN 13.5 G/DL (12.0-16.0); MEAN CORPUSCULAR VOLUME 94 FL (80-99); PLATELET COUNT 284 K/UL (150-450); RED BLOOD COUNT 4.57 M/UL (4.20-5.40); RED CELL DISTRIBUTION WIDTH 13.3 % (11.6-14.8); WHITE BLOOD COUNT 8.4 K/UL (4.8-10.8)
[2017-11-26 10:03] LABS: ANION GAP 11 mmol/L (5-15); BLOOD UREA NITROGEN 25 mg/dL (7-18); CALCIUM 7.8 MG/DL (8.5-10.1); CARBON DIOXIDE 27 MMOL/L (21-32); CHLORIDE 94 MMOL/L (98-107); CREATININE 1.5 MG/DL (0.55-1.30); POTASSIUM 4.5 MMOL/L (3.5-5.1); SODIUM 132 MMOL/L (136-145)
--- NOTE | 2017-11-26 10:06 | Diagnostic Imaging Report ---
Indication: Pain Technique: One view of the chest Comparison: 01/10/2017 Findings: Lungs and pleural spaces are clear. Heart size is normal. No significant interim change Impression: No acute process
[2017-11-26 10:07] LABS: APPEARANCE,URINE CLEAR; BILIRUBIN, URINE NEGATIVE (NEGATIVE); COLOR,URINE PALE YELLOW; GLUCOSE, URINE (UA) 4+ (NEGATIVE); KETONES,URINE 2+ (NEGATIVE); LEUKOCYTE ESTERASE ,URINE NEGATIVE (NEGATIVE); NITRITE,URINE NEGATIVE (NEGATIVE); PH,URINE 5 (4.5-8.0); PROTEIN,URINE 4+ (NEGATIVE); UROBILINOGEN,URINE NORMAL MG/DL (0.0-1.0)
[2017-11-26 10:08] LABS: ALANINE AMINOTRANSFERASE 24 U/L (12-78); ALBUMIN 3.4 G/DL (3.4-5.0); ALBUMIN/GLOBULIN RATIO 0.8 (1.0-2.7); ALKALINE PHOSPHATASE 203 U/L (46-116); ASPARTATE AMINO TRANSFERASE 31 U/L (15-37); BILIRUBIN,TOTAL 0.3 MG/DL (0.2-1.0)
[2017-11-26] MEDS ORDERED: Morphine Sulfate 4mg/ml Inj IVP ONE (11:45)
[2017-11-26 12:31] VITALS: BP 178/68
[2017-11-26 14:36] VITALS: BP 180/78
[2017-11-26 16:10] VITALS: BP 163/67
[2017-11-26] MEDS ORDERED: Morphine Sulfate 2mg/ml Inj IVP ONE (16:15)
[2017-11-26 19:00] VITALS: BP 167/85
[2017-11-26 20:00] VITALS: BP 129/69
--- NOTE | 2017-11-26 20:22 | History & Physical ---
History and Physical History & Physicial #[id number] intractible nv abdominal pain gastroparesis copd with tobacco use generalized weakness dm insulin dependent BO REILLY DO Nov 26, 2017 20:22
[2017-11-26] MEDS: NovoLOG Insulin Flexpen SUBQ SCH (20:52)
[2017-11-26] MEDS ORDERED: D5NS 1,000 ML IV SCH (21:00)
[2017-11-26] MEDS: cefTRIAXone 1 GM in D5W 55 ML IVPB SCH (22:11)
[2017-11-26] MEDS: Heparin 5000 units/ml inj SUBQ SCH (22:13)
--- NOTE | 2017-11-26 23:00 | History and Physical Report ---
DATE OF ADMISSION: 11/26/2017 REASON FOR ADMISSION: Intractable nausea, vomiting, abdominal pain, diarrhea, gastroparesis, renal insufficiency, and dehydration. HISTORY OF PRESENT ILLNESS: A 57-year-old female, who was last admitted to this facility back in December for similar complaints, although she was in DKA at that time. Also, she has had three days of abdominal pain, cramping, nausea, and vomiting. She has chronic diarrhea that was worse, unable to tolerate p.o., so she was taken off her medications. Decreased urine output. No fevers or chills reported. No cough, phlegm or sick ill contacts. PAST MEDICAL HISTORY: Diabetes, hypercholesterolemia, and hypertension. MEDICATIONS: Pre-hospital and present medications reviewed, reconciled, documented in the electronic medical record. ALLERGIES: She has no drug allergies. SOCIAL HISTORY: Positive for tobacco. No alcohol or drugs. FAMILY HISTORY: Noncontributory. REVIEW OF SYSTEMS: As previously noted. PHYSICAL EXAMINATION: GENERAL: At the time my exam, she is alert, she is oriented. She is currently in no acute respiratory distress. VITAL SIGNS: She does have a temperature of a 101.7, blood pressure is 167/85, pulse is 88, and respirations are 18. She is 96% on room air. HEENT: Normocephalic and atraumatic. Oropharynx is moist. Nasal mucosa is moist. NECK: Supple without lymphadenopathy. LUNGS: Decreased at the bases. No wheezes present. HEART: Regular rate and rhythm without a murmur. ABDOMEN: Soft. It is a bit tender. Positive bowel sounds. EXTREMITIES: No edema. NEUROLOGIC: No focal neurological deficits. Cranial nerves are intact. SKIN: No skin rashes or lesions are present. LABORATORY AND DIAGNOSTIC DATA: Her white count is 8.4, hemoglobin 13.5, and platelets are 284. She has a left shift. ABG is 7.4, 39, and 84. Her sodium is 132, potassium 4.5, chloride 95, bicarb 27, 11, BUN is 25, creatinine 1.5, and glucose is 481. Her alk phos is elevated at 203. Her urinalysis is negative for leukocyte esterase. Her chest x-ray is negative for infiltrate. There are many squamous epis in her urine. ASSESSMENT AND PLAN: 1. Gastroparesis with intractable nausea, vomiting, and abdominal pain. 2. Diabetes. 3. Suspect chronic obstructive pulmonary disease with active tobacco use. 4. Hyperlipidemia. PLAN: Plan for the patient, we will resume her pre-hospital medications including her Lantus, Accu-Cheks before meals and at bedtime with lispro sliding scale. Blood urine and sputum cultures are pending at this time. The patient currently with a temperature. We will give one dose of Rocephin until her cultures come back. O2, maintain sats greater than 90%, Zofran for nausea, IV fluids with normal saline at 120 an hour, aspiration precautions, and pain medicines as needed for her abdominal pain. Kristina Caal D.O. DR: JUMANA JOB#: [id number] CC:
[2017-11-27] VITALS: BP 127/67
[2017-11-27] MEDS: Morphine Sulfate 2mg/ml Inj IVP PRN ×5 (01:01→20:59)
[2017-11-27 04:00] VITALS: BP 143/73
[2017-11-27] MEDS: NovoLOG Insulin Flexpen SUBQ SCH ×4 (06:38→21:00)
[2017-11-27 08:00] VITALS: BP 140/74
--- NOTE | 2017-11-27 08:20 | Diagnostic Imaging Report ---
Indication: Pain Technique: XRAY Abdomen 1v Comparison: 05/12/2016 Findings: Bilateral nonobstructive. No evidence to suggest free intraperitoneal air however evaluation is limited on supine view. No acute osseous abnormality is seen. No radiopaque foreign body noted. Patchy opacity in the right lower lung is partially visualized. Impression: Nonobstructive bowel gas pattern. Patchy right lower lung opacity partially visualized. Please see report of dedicated concurrent chest radiograph.
--- NOTE | 2017-11-27 08:21 | Diagnostic Imaging Report ---
Indication: Cough Technique: XRAY Chest 1v Comparison: 11/26/2017 Findings: Interval development of new patchy opacity in the right lower lung with obscuration of the right heart border. Findings are concerning for new pneumonia, likely right middle lobe. No additional opacity is identified. No pleural effusion. No pneumothorax. Heart size and mediastinal contours are stable. No acute osseous abnormality seen. Impression: Interval development of patchy right lower lung opacity as above most concerning for pneumonia. Clinical correlation and follow-up exam recommended. This was discussed with the patient's treating nurse on at 8:10 AM on 11/27/17.
[2017-11-27] MEDS ORDERED: Levemir Flexpen SUBQ SCH (09:00)
[2017-11-27] MEDS: Aspirin Baby 81mg ORAL SCH (09:22)
[2017-11-27] MEDS: Heparin 5000 units/ml inj SUBQ SCH ×2 (09:22→21:01)
[2017-11-27 09:55] LABS: BASOPHILS % (AUTO) 0.2 % (0.0-2.0); HEMATOCRIT 36.1 % (37.0-47.0); HEMOGLOBIN 11.4 G/DL (12.0-16.0); MEAN CORPUSCULAR VOLUME 92 FL (80-99); MONOCYTES % (AUTO) 2.5 % (1.0-10.0); NEUTROPHILS % (AUTO) 84.4 % (45.0-75.0); PLATELET COUNT 216 K/UL (150-450); RED BLOOD COUNT 3.93 M/UL (4.20-5.40); WHITE BLOOD COUNT 13.8 K/UL (4.8-10.8)
[2017-11-27 10:05] LABS: ALANINE AMINOTRANSFERASE 19 U/L (12-78); ALBUMIN 2.4 G/DL (3.4-5.0); ALKALINE PHOSPHATASE 150 U/L (46-116); ANION GAP 11 mmol/L (5-15); ASPARTATE AMINO TRANSFERASE 21 U/L (15-37); BILIRUBIN,DIRECT < 0.1 MG/DL (0.0-0.3); BILIRUBIN,TOTAL 0.1 MG/DL (0.2-1.0); BLOOD UREA NITROGEN 16 mg/dL (7-18); CALCIUM 6.8 MG/DL (8.5-10.1); CARBON DIOXIDE 25 MMOL/L (21-32); CHLORIDE 98 MMOL/L (98-107); CREATININE 1.4 MG/DL (0.55-1.30); POTASSIUM 3.8 MMOL/L (3.5-5.1); SODIUM 134 MMOL/L (136-145)
[2017-11-27 12:00] VITALS: BP 135/70
--- NOTE | 2017-11-27 13:32 | Pulmonology Progress Note ---
Assessment/Plan Assessment/Plan 1. Gastroparesis with intractable nausea, vomiting, and abdominal pain. 2. Diabetes, poor control 3. RLL pneumonia 4. Hyperlipidemia. 5. CKD 3 abx IVF insulin GI eval Subjective Respiratory: Reports: productive cough Cardiovascular: Reports: chest pain Allergies: Coded Allergies: No Known Allergies (Verified Allergy, Mild, 05/04/10) Objective Last 24 Hour Vital Signs Date Time Temp Pulse Resp B/P (MAP) Pulse Ox O2 Delivery O2 Flow Rate FiO2 11/27/17 08:00 98.6 83 18 140/74 96 Room Air 11/27/17 04:00 99.0 87 20 143/73 95 Room Air 11/27/17 00:00 99.0 84 20 127/67 95 Room Air 11/26/17 22:11 100.4 11/26/17 20:00 101.5 93 20 129/69 96 11/26/17 19:00 101.7 88 18 167/85 96 Room Air 11/26/17 17:06 97.1 89 18 163/67 99 Room Air 11/26/17 16:10 97.1 89 18 163/67 99 Room Air 11/26/17 14:36 100.1 89 18 180/78 97 Room Air Intake and Output 11/26/17 11/27/17 19:00 07:00 Intake Total 545 ml Balance 545 ml Intake Oral 240 ml IV Total 305 ml # Voids 1 2 # Bowel Movements 1 General Appearance: no acute distress Respiratory/Chest: crackles/rales - R base Cardiovascular: normal rate Abdomen: soft, non tender Laboratory Tests 11/27/17 08:50: White Blood Count 13.8#H, Red Blood Count 3.93L, Hemoglobin 11.4L, Hematocrit 36.1L, Mean Corpuscular Volume 92, Mean Corpuscular Hemoglobin 29.0, Mean Corpuscular Hemoglobin Concent 31.5L, Red Cell Distribution Width 13.0, Platelet Count 216, Mean Platelet Volume 7.6, Neutrophils (%) (Auto) 84.4H, Lymphocytes (%) (Auto) 13.0L, Monocytes (%) (Auto) 2.5, Eosinophils (%) (Auto) 0.0, Basophils (%) (Auto) 0.2, Sodium Level 134L, Potassium Level 3.8, Chloride Level 98, Carbon Dioxide Level 25, Anion Gap 11, Blood Urea Nitrogen 16, Creatinine 1.4H, Estimat Glomerular Filtration Rate 47.1, Glucose Level 326#H, Calcium Level 6.8L, Magnesium Level 1.7L, Total Bilirubin 0.1L, Direct Bilirubin < 0.1, Aspartate Amino Transf (AST/SGOT) 21, Alanine Aminotransferase (ALT/SGPT) 19, Alkaline Phosphatase 150H, Troponin I 0.013, Total Protein 6.2L, Albumin 2.4L, Lipase 65L Current Medications Medications (Trade) Dose Ordered Sig/Usha Route PRN Reason Start Time Stop Time Status Last Admin Dose Admin Acetaminophen (Tylenol) 650 mg Q4H PRN ORAL Mild Pain/Temp > 100.5 11/26/17 19:45 12/26/17 19:44 11/27/17 05:07 Aspirin (ASA) 81 mg DAILY ORAL 11/27/17 09:00 12/27/17 08:59 11/27/17 09:22 Ceftriaxone Sodium 1 gm/ Dextrose 55 ml @ 110 mls/hr Q24H IVPB 11/26/17 22:00 12/03/17 21:59 11/26/17 22:11 Dextrose (Dextrose 50%) STAT PRN IV Hypoglycemia 11/26/17 20:00 12/26/17 19:59 Heparin Sodium (Porcine) (Heparin 5000 units/ml) 5,000 units EVERY 12 HOURS SUBQ 11/26/17 21:00 12/26/17 20:59 11/27/17 09:22 Insulin Aspart (NovoLOG) BEFORE MEALS AND HS SUBQ 11/26/17 21:00 12/26/17 20:59 11/27/17 11:30 Insulin Detemir (Levemir) 15 units DAILY SUBQ 11/27/17 09:00 12/27/17 08:59 11/27/17 09:29 Morphine Sulfate (Morphine Sulfate) 2 mg Q4H PRN IVP Severe Pain Scale 7-10 11/26/17 19:45 12/03/17 19:44 11/27/17 09:39 Nicotine (Nicoderm) 1 patch Q24H TDERMAL 11/26/17 21:00 12/26/17 20:59 11/26/17 22:18 Ondansetron HCl (Zofran) 4 mg Q4H PRN IVP Nausea & Vomiting 11/26/17 19:45 12/26/17 19:44 Sodium Chloride 1,000 ml @ 125 mls/hr Q8H IV 11/26/17 21:00 12/26/17 20:59 11/27/17 05:07 ARNULFO TORRES Nov 27, 2017 13:32
[2017-11-27] MEDS ORDERED: Azithromycin 250mg tab ORAL ONE (14:00)
[2017-11-27 16:00] VITALS: BP 130/68
--- NOTE | 2017-11-27 17:09 | Cardiology Report ---
APPROVED REPORT EKG Measurement Heart [id number] Normal sinus rhythm Biatrial enlargement Abnormal ECG
[2017-11-27 20:00] VITALS: BP 156/86
[2017-11-27] MEDS: cefTRIAXone 1 GM in D5W 55 ML IVPB SCH (22:03)
[2017-11-28] VITALS: BP 134/76
[2017-11-28 04:00] VITALS: BP 160/87
[2017-11-28] MEDS: Morphine Sulfate 2mg/ml Inj IVP PRN ×4 (04:24→21:50)
[2017-11-28] MEDS: NovoLOG Insulin Flexpen SUBQ SCH ×4 (06:02→21:32)
[2017-11-28 07:27] LABS: HEMATOCRIT 36.1 % (37.0-47.0); HEMOGLOBIN 11.4 G/DL (12.0-16.0); MEAN CORPUSCULAR VOLUME 94 FL (80-99); PLATELET COUNT 210 K/UL (150-450); RED BLOOD COUNT 3.85 M/UL (4.20-5.40); RED CELL DISTRIBUTION WIDTH 13.5 % (11.6-14.8); WHITE BLOOD COUNT 14.8 K/UL (4.8-10.8)
[2017-11-28 07:38] LABS: ALANINE AMINOTRANSFERASE 25 U/L (12-78); ALBUMIN 2.3 G/DL (3.4-5.0); ALBUMIN/GLOBULIN RATIO 0.6 (1.0-2.7); ALKALINE PHOSPHATASE 173 U/L (46-116); ANION GAP 13 mmol/L (5-15); ASPARTATE AMINO TRANSFERASE 37 U/L (15-37); BILIRUBIN,TOTAL 0.2 MG/DL (0.2-1.0); BLOOD UREA NITROGEN 13 mg/dL (7-18); CALCIUM 7.2 MG/DL (8.5-10.1); CARBON DIOXIDE 23 MMOL/L (21-32); CHLORIDE 100 MMOL/L (98-107); CHOLESTEROL 90 MG/DL (< 200); HDL CHOLESTEROL 42 MG/DL (40-60); POTASSIUM 4.4 MMOL/L (3.5-5.1); SODIUM 136 MMOL/L (136-145); TRIGLYCERIDES 103 MG/DL (30-150)
[2017-11-28 08:00] VITALS: BP 155/79
[2017-11-28] MEDS ORDERED: Levemir Flexpen SUBQ SCH (09:00)
[2017-11-28] MEDS: Aspirin Baby 81mg ORAL SCH (09:09)
[2017-11-28] MEDS: Heparin 5000 units/ml inj SUBQ SCH ×2 (09:14→21:28)
[2017-11-28 12:00] VITALS: BP 159/83
--- NOTE | 2017-11-28 13:06 | Pulmonology Progress Note ---
Assessment/Plan Assessment/Plan 1. Gastroparesis with intractable nausea, vomiting, and abdominal pain. 2. Diabetes, poor control 3. RLL pneumonia 4. Hyperlipidemia. 5. CKD 3 WBC higher; called ID IVF increased insulin GI eval re nausea wants to try solid food Subjective Respiratory: Reports: productive cough Gastrointestinal/Abdominal: Reports: nausea Allergies: Coded Allergies: No Known Allergies (Verified Allergy, Mild, 05/04/10) Objective Last 24 Hour Vital Signs Date Time Temp Pulse Resp B/P (MAP) Pulse Ox O2 Delivery O2 Flow Rate FiO2 11/28/17 12:00 97.5 78 20 159/83 96 11/28/17 08:00 97.9 96 20 155/79 98 11/28/17 04:00 98.1 87 20 160/87 97 11/28/17 00:00 98.0 84 18 134/76 96 11/27/17 21:53 98.1 11/27/17 20:00 98.1 87 18 156/86 98 11/27/17 16:00 98.0 76 18 130/68 Intake and Output 11/27/17 11/28/17 19:00 07:00 Intake Total 2175 ml 1395 ml Balance 2175 ml 1395 ml Intake Oral 800 ml IV Total 1375 ml 1395 ml # Voids 5 4 # Bowel Movements 3 General Appearance: no acute distress HEENT: atraumatic Respiratory/Chest: decreased breath sounds Cardiovascular: normal rate Abdomen: soft, non tender, no organomegaly Laboratory Tests 11/28/17 06:35: White Blood Count 14.8H, Red Blood Count 3.85L, Hemoglobin 11.4L, Hematocrit 36.1L, Mean Corpuscular Volume 94, Mean Corpuscular Hemoglobin 29.7, Mean Corpuscular Hemoglobin Concent 31.7L, Red Cell Distribution Width 13.5, Platelet Count 210, Mean Platelet Volume 8.2, Neutrophils (%) (Auto) , Lymphocytes (%) (Auto) , Monocytes (%) (Auto) , Eosinophils (%) (Auto) , Basophils (%) (Auto) , Differential Total Cells Counted 100, Neutrophils % ( Manual) 83H, Lymphocytes % (Manual) 15L, Monocytes % (Manual) 2, Eosinophils % ( Manual) 0, Basophils % (Manual) 0, Band Neutrophils 0, Platelet Estimate Adequate, Platelet Morphology Normal, Hypochromasia 1+, Sodium Level 136, Potassium Level 4.4, Chloride Level 100, Carbon Dioxide Level 23, Anion Gap 13, Blood Urea Nitrogen 13, Creatinine 1.0, Estimat Glomerular Filtration Rate > 60 , Glucose Level 374H, Calcium Level 7.2L, Total Bilirubin 0.2, Aspartate Amino Transf (AST/SGOT) 37, Alanine Aminotransferase (ALT/SGPT) 25, Alkaline Phosphatase 173H, Total Protein 6.2L, Albumin 2.3L, Globulin 3.9, Albumin/ Globulin Ratio 0.6L, Triglycerides Level 103, Cholesterol Level 90, LDL Cholesterol 29, HDL Cholesterol 42, Cholesterol/HDL Ratio 2.1L, Thyroid Stimulating Hormone (TSH) 0.585 Current Medications Medications (Trade) Dose Ordered Sig/Usha Route PRN Reason Start Time Stop Time Status Last Admin Dose Admin Acetaminophen (Tylenol) 650 mg Q4H PRN ORAL Mild Pain/Temp > 100.5 11/26/17 19:45 12/26/17 19:44 11/27/17 05:07 Aspirin (ASA) 81 mg DAILY ORAL 11/27/17 09:00 12/27/17 08:59 11/28/17 09:09 Azithromycin (Zithromax) 250 mg DAILY@1400 ORAL 11/28/17 14:00 12/02/17 23:59 Ceftriaxone Sodium 1 gm/ Dextrose 55 ml @ 110 mls/hr Q24H IVPB 11/26/17 22:00 12/03/17 21:59 11/27/17 22:03 Dextrose (Dextrose 50%) STAT PRN IV Hypoglycemia 11/26/17 20:00 12/26/17 19:59 Heparin Sodium (Porcine) (Heparin 5000 units/ml) 5,000 units EVERY 12 HOURS SUBQ 11/26/17 21:00 12/26/17 20:59 11/28/17 09:14 Insulin Aspart (NovoLOG) BEFORE MEALS AND HS SUBQ 11/26/17 21:00 12/26/17 20:59 11/28/17 11:25 Insulin Detemir (Levemir) 20 units DAILY SUBQ 11/28/17 09:00 12/28/17 08:59 11/28/17 09:13 Morphine Sulfate (Morphine Sulfate) 2 mg Q4H PRN IVP Severe Pain Scale 7-10 11/26/17 19:45 12/03/17 19:44 1/3/18 09:08 Nicotine (Nicoderm) 1 patch Q24H TDERMAL 11/26/17 21:00 12/26/17 20:59 11/27/17 21:02 Ondansetron HCl (Zofran) 4 mg Q4H PRN IVP Nausea & Vomiting 11/26/17 19:45 12/26/17 19:44 11/28/17 09:09 Sodium Chloride 1,000 ml @ 125 mls/hr Q8H IV 11/26/17 21:00 12/26/17 20:59 11/28/17 04:25 ARNULFO TORRES Nov 28, 2017 13:06
[2017-11-28] MEDS: Azithromycin 250mg tab ORAL SCH (13:30)
--- NOTE | 2017-11-28 14:36 | Infectious Diseases Prog Note ---
Assessment/Plan Problems: (1) Aspiration pneumonia Assessment & Plan: suspect due to recurrent vomiting, will send sputum for culture, screen for influenza, and start zosyn empirically , continue zithromax for 5 days total , stop ceftriaxon . recommend aspiration precaution . (2) Sepsis Assessment & Plan: with fever and worsening leukocytosis , suspect due to aspiration pneumonia , will send blood culture and start zosyn empiric coverage . (3) Uncontrolled diabetes mellitus Assessment & Plan: recommend tight glycemic control to keep blood glucose between 100-140 . (4) Intractable nausea and vomiting Assessment & Plan: due to the above , continue supportive care and nausea meds (5) Thrush, oral Assessment & Plan: suspect due to poorly controled DM, will start oral nystatin and screen for HIV Subjective Allergies: Coded Allergies: No Known Allergies (Verified Allergy, Mild, 05/04/10) Objective Vital Signs Last 24 Hour Vital Signs Date Time Temp Pulse Resp B/P (MAP) Pulse Ox O2 Delivery O2 Flow Rate FiO2 11/28/17 12:00 97.5 78 20 159/83 96 11/28/17 08:00 97.9 96 20 155/79 98 11/28/17 04:00 98.1 87 20 160/87 97 11/28/17 00:00 98.0 84 18 134/76 96 11/27/17 21:53 98.1 11/27/17 20:00 98.1 87 18 156/86 98 11/27/17 16:00 98.0 76 18 130/68 Height (Feet): 5 Height (Inches): 2.00 Weight (Pounds): 115 Laboratory Tests Test 11/28/17 06:35 White Blood Count 14.8 K/UL (4.8-10.8) H Red Blood Count 3.85 M/UL (4.20-5.40) L Hemoglobin 11.4 G/DL (12.0-16.0) L Hematocrit 36.1 % (37.0-47.0) L Mean Corpuscular Volume 94 FL (80-99) Mean Corpuscular Hemoglobin 29.7 PG (27.0-31.0) Mean Corpuscular Hemoglobin Concent 31.7 G/DL (32.0-36.0) L Red Cell Distribution Width 13.5 % (11.6-14.8) Platelet Count 210 K/UL (150-450) Mean Platelet Volume 8.2 FL (6.5-10.1) Neutrophils (%) (Auto) % (45.0-75.0) Lymphocytes (%) (Auto) % (20.0-45.0) Monocytes (%) (Auto) % (1.0-10.0) Eosinophils (%) (Auto) % (0.0-3.0) Basophils (%) (Auto) % (0.0-2.0) Differential Total Cells Counted 100 Neutrophils % (Manual) 83 % (45-75) H Lymphocytes % (Manual) 15 % (20-45) L Monocytes % (Manual) 2 % (1-10) Eosinophils % (Manual) 0 % (0-3) Basophils % (Manual) 0 % (0-2) Band Neutrophils 0 % (0-8) Platelet Estimate Adequate Platelet Morphology Normal Hypochromasia 1+ Sodium Level 136 MMOL/L (136-145) Potassium Level 4.4 MMOL/L (3.5-5.1) Chloride Level 100 MMOL/L (98-107) Carbon Dioxide Level 23 MMOL/L (21-32) Anion Gap 13 mmol/L (5-15) Blood Urea Nitrogen 13 mg/dL (7-18) Creatinine 1.0 MG/DL (0.55-1.30) Estimat Glomerular Filtration Rate > 60 mL/min (>60) Glucose Level 374 MG/DL (74-106) H Calcium Level 7.2 MG/DL (8.5-10.1) L Total Bilirubin 0.2 MG/DL (0.2-1.0) Aspartate Amino Transf (AST/SGOT) 37 U/L (15-37) Alanine Aminotransferase (ALT/SGPT) 25 U/L (12-78) Alkaline Phosphatase 173 U/L (46-116) H Total Protein 6.2 G/DL (6.4-8.2) L Albumin 2.3 G/DL (3.4-5.0) L Globulin 3.9 g/dL Albumin/Globulin Ratio 0.6 (1.0-2.7) L Triglycerides Level 103 MG/DL (30-150) Cholesterol Level 90 MG/DL (< 200) LDL Cholesterol 29 mg/dL (<100) HDL Cholesterol 42 MG/DL (40-60) Cholesterol/HDL Ratio 2.1 (3.3-4.4) L Thyroid Stimulating Hormone (TSH) 0.585 uiU/mL (0.358-3.740) Current Medications Medications (Trade) Dose Ordered Sig/Usha Route PRN Reason Start Time Stop Time Status Last Admin Dose Admin Acetaminophen (Tylenol) 650 mg Q4H PRN ORAL Mild Pain/Temp > 100.5 11/26/17 19:45 12/26/17 19:44 11/27/17 05:07 Aspirin (ASA) 81 mg DAILY ORAL 11/27/17 09:00 12/27/17 08:59 11/28/17 09:09 Azithromycin (Zithromax) 250 mg DAILY@1400 ORAL 11/28/17 14:00 12/02/17 23:59 11/28/17 13:30 Ceftriaxone Sodium 1 gm/ Dextrose 55 ml @ 110 mls/hr Q24H IVPB 11/26/17 22:00 12/03/17 21:59 11/27/17 22:03 Dextrose (Dextrose 50%) STAT PRN IV Hypoglycemia 11/28/17 13:15 12/28/17 13:14 Heparin Sodium (Porcine) (Heparin 5000 units/ml) 5,000 units EVERY 12 HOURS SUBQ 11/26/17 21:00 12/26/17 20:59 11/28/17 09:14 Insulin Aspart (NovoLOG) BEFORE MEALS AND HS SUBQ 11/28/17 16:30 12/28/17 16:29 Insulin Detemir (Levemir) 28 units DAILY SUBQ 11/29/17 09:00 12/29/17 08:59 Morphine Sulfate (Morphine Sulfate) 2 mg Q4H PRN IVP Severe Pain Scale 7-10 11/26/17 19:45 12/03/17 19:44 11/28/17 13:29 Nicotine (Nicoderm) 1 patch Q24H TDERMAL 11/26/17 21:00 12/26/17 20:59 11/27/17 21:02 Ondansetron HCl (Zofran) 4 mg Q4H PRN IVP Nausea & Vomiting 11/26/17 19:45 12/26/17 19:44 11/28/17 09:09 Sodium Chloride 1,000 ml @ 125 mls/hr Q8H IV 11/26/17 21:00 12/26/17 20:59 11/28/17 13:30 Gino Llanes M.D. Nov 28, 2017 14:36
[2017-11-28 16:00] VITALS: BP 149/78
[2017-11-28] MEDS: Piperacillin/Tazobactam 3.375 GM in NS 110 ML IVPB SCH ×2 (17:15→21:30)
[2017-11-28] MEDS: Nystatin Susp 500,000 units/5ml ORAL SCH ×2 (17:24→21:00)
[2017-11-28 20:00] VITALS: BP 134/68
--- NOTE | 2017-11-28 20:45 | Consultation ---
DATE OF CONSULTATION: 11/28/2017 INFECTIOUS DISEASE CONSULTATION CONSULTING PHYSICIAN: Gino Llanes M.D. REQUESTING PHYSICIAN: Ta Cade M.D. REASON FOR CONSULTATION: Worsening pneumonia, sepsis and leukocytosis. Recommendation for antibiotics treatment and further management. HISTORY OF PRESENT ILLNESS: The patient is a 57-year-old female with past medical history of diabetes, poorly controlled; hyperlipidemia; and hypertension who was admitted to [facility] with diabetic ketoacidosis, abdominal pain, nausea, and vomiting. The patient was found to have pneumonia, and she was started on ceftriaxone and Zithromax. On admission date. Her symptoms did not get better. She continued to have leukocytosis, which has been getting worse. She had recurrent episodes of nausea and vomiting. It is unclear whether she aspirated or not, but repeated chest x-ray today is suggestive of right lower lobe consolidation, so I was consulted by the primary provider team for antibiotic treatment and further management for worsening pneumonia. The patient had flu-like symptoms when her nausea and vomiting started. Denied any recent travel or sick contact. She was never vaccinated for flu this year. PAST MEDICAL HISTORY: Significant for diabetes, hyperlipidemia, and hypertension. PAST SURGICAL HISTORY: Negative. MEDICATIONS: Currently, she is on ceftriaxone and Zithromax. For the rest of her medications, please refer to MAR. FAMILY HISTORY: Noncontributory. SOCIAL HISTORY: The patient lives at home with family. She smokes half packet per day average. No alcohol or drugs. REVIEW OF SYSTEMS: Fourteen points of systems reviewed, were all negative apart from the one I mentioned above in my H and P. PHYSICAL EXAMINATION: GENERAL: The patient is a middle-aged female, lying in bed, awake, alert, oriented, not in distress, complaining of nausea. VITAL SIGNS: Temperature 97.5, pulse 78, respirations 20, blood pressure 159/83, and saturation 96% on room air. HEENT: Normocephalic and atraumatic. Pupils reactive to light equally. Moist oral mucosa. No exudate, but she has tongue thrush, probably due to yeast. NECK: Supple. No lymphadenopathy. CARDIOVASCULAR: Regular rate and rhythm. No murmur or gallop. LUNGS: She had crackles on the right lower lobe and diminished breathing sounds. No wheezing or rhonchi. ABDOMEN: Soft, nontender, and nondistended. Normal bowel sounds. No hepatosplenomegaly. No ascites. EXTREMITIES: No edema. No cyanosis. SKIN: No rash. No hives. LABORATORY DATA: Labs showed white count of 14.8, hemoglobin of 11.4, and platelet count of 210. BUN of 13 and creatinine of 1. AST of 47 and ALT of 25. Urinalysis showed few bacteria in the urine, 2 to 4 coarse granular casts, negative leukocyte esterase, and negative nitrite. IMAGES: Chest x-ray on admission showed no acute process. Repeated chest x-ray on 11/27/2017 showed interval development of patchy right lower lung opacity concerning for pneumonia. Abdominal x-ray showed nonobstructive bowel gas pattern. ASSESSMENT AND RECOMMENDATION: 1. Aspiration pneumonia due to recurrent vomiting most likely. We will send sputum for culture. We will screen also for influenza since she was never vaccinated. We will start Zosyn empiric coverage for now. Continue Zithromax for five days total to cover atypical organism and we will stop ceftriaxone. Recommend aspiration precaution. 2. Sepsis with fever and worsening leukocytosis due to aspiration pneumonia. We will send blood culture to rule out bacteremia and start Zosyn empiric coverage for now, pending culture. 3. Uncontrolled diabetes. Recommend tight glycemic control to keep blood glucose between 100 to 140. 4. Intractable nausea and vomiting due to the above. Continue supportive care and nausea medicine. 5. Oral thrush, suspect mainly due to diabetes. We will start nystatin empiric coverage and screen for immunocompromised condition such as human immunodeficiency virus. Thank you for the consultation. Infectious Disease will continue to follow. Gino Llanes M.D. DR: BALJINDER JOB#: [id number] CC:
--- NOTE | 2017-11-28 23:01 | General Progress Note ---
Assessment/Plan Assessment/Plan GI CONSULT ATSP for Vomiting and diarrhea Assessment - Periodic cycles of N/V suggestive of possible cyclic N/V syndrome (although pt states she has been diagnosed with gastroparesis instead) - Chronic diarrhea, including nocturnal episodes ? etiology - h/o extensive GI w/u, including EGD, colonoscopy, gastric emptying study - results not available at this time Recommendations - patient to get/bring prior GI w/u to MD for review, to avoid duplicate testing - check stool OB - Check stool - check stool cultures Subjective Allergies: Coded Allergies: No Known Allergies (Verified Allergy, Mild, 05/04/10) Objective Last 24 Hour Vital Signs Date Time Temp Pulse Resp B/P (MAP) Pulse Ox O2 Delivery O2 Flow Rate FiO2 11/28/17 20:00 98.1 83 20 134/68 98 11/28/17 16:00 98.1 79 20 149/78 96 11/28/17 12:00 97.5 78 20 159/83 96 11/28/17 08:00 97.9 96 20 155/79 98 11/28/17 04:00 98.1 87 20 160/87 97 11/28/17 00:00 98.0 84 18 134/76 96 Intake and Output 11/27/17 11/28/17 19:00 07:00 Intake Total 2175 ml 1395 ml Balance 2175 ml 1395 ml Intake Oral 800 ml IV Total 1375 ml 1395 ml # Voids 5 4 # Bowel Movements 3 Laboratory Tests 11/28/17 06:35: White Blood Count 14.8H, Red Blood Count 3.85L, Hemoglobin 11.4L, Hematocrit 36.1L, Mean Corpuscular Volume 94, Mean Corpuscular Hemoglobin 29.7, Mean Corpuscular Hemoglobin Concent 31.7L, Red Cell Distribution Width 13.5, Platelet Count 210, Mean Platelet Volume 8.2, Neutrophils (%) (Auto) , Lymphocytes (%) (Auto) , Monocytes (%) (Auto) , Eosinophils (%) (Auto) , Basophils (%) (Auto) , Differential Total Cells Counted 100, Neutrophils % ( Manual) 83H, Lymphocytes % (Manual) 15L, Monocytes % (Manual) 2, Eosinophils % ( Manual) 0, Basophils % (Manual) 0, Band Neutrophils 0, Platelet Estimate Adequate, Platelet Morphology Normal, Hypochromasia 1+, Sodium Level 136, Potassium Level 4.4, Chloride Level 100, Carbon Dioxide Level 23, Anion Gap 13, Blood Urea Nitrogen 13, Creatinine 1.0, Estimat Glomerular Filtration Rate > 60 , Glucose Level 374H, Calcium Level 7.2L, Total Bilirubin 0.2, Aspartate Amino Transf (AST/SGOT) 37, Alanine Aminotransferase (ALT/SGPT) 25, Alkaline Phosphatase 173H, Total Protein 6.2L, Albumin 2.3L, Globulin 3.9, Albumin/ Globulin Ratio 0.6L, Triglycerides Level 103, Cholesterol Level 90, LDL Cholesterol 29, HDL Cholesterol 42, Cholesterol/HDL Ratio 2.1L, Thyroid Stimulating Hormone (TSH) 0.585 11/28/17 15:35: HIV (1&2) Antibody Rapid Negative 11/28/17 19:40: Giardia Antigen [Pending] Height (Feet): 5 Height (Inches): 2.00 Weight (Pounds): 115 ASHLEIGHLILAMATT Nov 28, 2017 23:01
[2017-11-29] VITALS (7 sets, daily range): BP systolic 117–176; BP diastolic 52–88
--- NOTE | 2017-11-29 06:15 | Consultation ---
DATE OF CONSULTATION: 11/28/2017 GASTROENTEROLOGY CONSULTATION REPORT CHIEF COMPLAINT: I was asked to see this patient by Dr. Ta Cade for evaluation of vomiting and diarrhea. HISTORY OF PRESENT ILLNESS: The patient is a pleasant 57-year-old woman who comes into the hospital due to pneumonia and respiratory infection. The patient also gives a very complex past medical history involving her gastrointestinal tract. The patient states that she has had a diagnosis of gastroparesis for many years. She also has a history of chronic diabetic gastroparesis pertaining to nausea and vomiting, but this only happens twice a year, perhaps every 6 months and lasting 6 days. She has persistent nausea and vomiting for that duration of 6 days. Between the attacks however, she has no nausea and vomiting. She thinks this diagnosis of gastroparesis when she has had extensive gastrointestinal workup including endoscopies and nuclear medicine gastric emptying studies. The patient also complains of long-term diarrhea. She has about 10 bowel movements a day and also several bowel movements during the night. She has had this diarrhea for several years, perhaps 2 to 3 years. The patient has had a colonoscopy, the last time being July 2017. She was told she did not have colitis. She has been treated with p.r.n. medicine with Imodium only. Her last nuclear medicine study and endoscopies were in 2016. No other records are available at this time to me. PAST MEDICAL HISTORY: History of diabetes with neuropathy, history of hyperlipidemia, and history of hypertension. FAMILY HISTORY: Noncontributory. SOCIAL HISTORY: The patient smokes one half a pack a day for about a year now. REVIEW OF SYSTEMS: Otherwise negative. PHYSICAL EXAMINATION: GENERAL: The patient is a pleasant woman seen in her room in no distress. HEENT: Normocephalic and atraumatic. Sclerae anicteric. Oropharynx clear. NECK: Supple. CHEST: Clear to auscultation. CARDIOVASCULAR: Regular rhythm and rate. ABDOMEN: Soft. Good bowel sounds. There is no organomegaly. EXTREMITIES: Revealed no edema. NEUROLOGIC: Nonfocal. LABORATORY AND DIAGNOSTIC DATA: Laboratory data has been noted. ASSESSMENT: The patient presents with nausea and vomiting syndrome, which occurs every 6 months that is relatively infrequent. The patient states that she has been diagnosed with gastroparesis, but that will be unusual since gastroparesis in a long-term constant condition would not have long periods of asymptomatic state. Her presentation is more likely the type of cyclic nausea and vomiting syndrome. Her nuclear medicine studies with the gastric emptying protocol may have indeed effected some degree of gastroparesis related to her diabetes. However, this gastroparesis is not likely the presenting cause of vomiting that occurs every 6 months. I asked the patient to obtain her outside records, so I can review them. With respect to her diarrhea symptoms, the patient has a longstanding history of diarrhea, which is somewhat profound including nighttime diarrhea. This is suspicious for inflammatory bowel disease but the patient specifically states that she has been diagnosed as not having colitis. The one thing I would prefer to do is see the results of her recent workup, especially the colonoscopy that was done only a few months ago to determine the exact nature of her symptoms. In the meantime, I would just be checking her stool workup while in the hospital and the patient said that she will get her outside records for me to review. RECOMMENDATIONS: Per above discussion and per orders written in the chart. Thank you for asking me to participate in the care of this patient. Brigitte Holder M.D. DR: JOSÉ MIGUEL JOB#: [id number] CC: [email or web address]
[2017-11-29] MEDS: Piperacillin/Tazobactam 3.375 GM in NS 110 ML IVPB SCH ×3 (06:22→21:55)
[2017-11-29] MEDS: NovoLOG Insulin Flexpen SUBQ SCH ×4 (06:24→21:00)
[2017-11-29] MEDS: Morphine Sulfate 2mg/ml Inj IVP PRN ×2 (06:31→15:54)
[2017-11-29 07:39] LABS: BASOPHILS % (AUTO) 0.1 % (0.0-2.0); EOSINOPHILS % (AUTO) 0.3 % (0.0-3.0); HEMATOCRIT 35.9 % (37.0-47.0); LYMPHOCYTES % (AUTO) 17.2 % (20.0-45.0); MEAN CORPUSCULAR VOLUME 95 FL (80-99); NEUTROPHILS % (AUTO) 79.4 % (45.0-75.0); PLATELET COUNT 237 K/UL (150-450); RED BLOOD COUNT 3.78 M/UL (4.20-5.40); RED CELL DISTRIBUTION WIDTH 13.5 % (11.6-14.8); WHITE BLOOD COUNT 14.6 K/UL (4.8-10.8)
[2017-11-29 08:12] LABS: ALANINE AMINOTRANSFERASE 21 U/L (12-78); ALBUMIN 2.2 G/DL (3.4-5.0); ALBUMIN/GLOBULIN RATIO 0.6 (1.0-2.7); ALKALINE PHOSPHATASE 169 U/L (46-116); ANION GAP 15 mmol/L (5-15); ASPARTATE AMINO TRANSFERASE 34 U/L (15-37); BILIRUBIN,TOTAL 0.3 MG/DL (0.2-1.0); BLOOD UREA NITROGEN 10 mg/dL (7-18); CALCIUM 7.3 MG/DL (8.5-10.1); CARBON DIOXIDE 21 MMOL/L (21-32); CHLORIDE 102 MMOL/L (98-107); CREATININE 0.9 MG/DL (0.55-1.30); POTASSIUM 4.1 MMOL/L (3.5-5.1); SODIUM 138 MMOL/L (136-145)
[2017-11-29] MEDS ORDERED: Levemir Flexpen SUBQ SCH (09:00)
[2017-11-29] MEDS: Nystatin Susp 500,000 units/5ml ORAL SCH ×4 (09:27→21:54)
[2017-11-29] MEDS: Aspirin Baby 81mg ORAL SCH (09:28)
[2017-11-29] MEDS: Heparin 5000 units/ml inj SUBQ SCH ×2 (09:28→21:58)
--- NOTE | 2017-11-29 13:28 | Infectious Diseases Prog Note ---
Assessment/Plan Problems: (1) Aspiration pneumonia Assessment & Plan: suspect due to recurrent vomiting, await sputum culture, screening for influenza is negative , continue zosyn empirically , continue zithromax for 5 days total . recommend aspiration precaution . (2) Sepsis Assessment & Plan: with fever and worsening leukocytosis , suspect due to aspiration pneumonia , await blood culture, continue zosyn empiric coverage . (3) Uncontrolled diabetes mellitus Assessment & Plan: recommend tight glycemic control to keep blood glucose between 100-140 . (4) Intractable nausea and vomiting Assessment & Plan: due to the above , continue supportive care and nausea meds (5) Thrush, oral Assessment & Plan: suspect due to poorly controled DM, will start oral nystatin and screen for HIV (6) Diarrhea Assessment & Plan: infectious VS absorption related pathology, will send stool for culture, O/P, and C diff , may need colonoscopy with biopsy for further eval Subjective Constitutional: Reports: fatigue HEENT: Reports: no symptoms Respiratory: Reports: dry cough Breasts: Reports: no symptoms Cardiovascular: Reports: no symptoms Gastrointestinal/Abdominal: Reports: diarrhea Genitourinary: Reports: no symptoms Neurologic: Reports: no symptoms Psychiatric: Reports: no symptoms Skin: Reports: no symptoms Endocrine: Reports: no symptoms Hematologic: Reports: no symptoms Musculoskeletal: Reports: no symptoms Allergies: Coded Allergies: No Known Allergies (Verified Allergy, Mild, 05/04/10) Objective Vital Signs Last 24 Hour Vital Signs Date Time Temp Pulse Resp B/P (MAP) Pulse Ox O2 Delivery O2 Flow Rate FiO2 11/29/17 11:46 98.2 79 19 176/88 97 11/29/17 08:00 97.7 79 20 153/77 98 11/29/17 04:00 97.9 74 20 131/52 97 Room Air 11/29/17 00:00 98.6 18 117/65 96 11/28/17 20:00 98.1 83 20 134/68 98 11/28/17 16:00 98.1 79 20 149/78 96 Height (Feet): 5 Height (Inches): 2.00 Weight (Pounds): 115 General Appearance: WD/WN, no acute distress HEENT: normocephalic, atraumatic, anicteric, mucous membranes moist, PERRL, EOMI, pharynx normal, supple, no JVD Respiratory/Chest: chest wall non-tender, no respiratory distress, no accessory muscle use, decreased breath sounds, crackles/rales Cardiovascular: normal peripheral pulses, normal rate, regular rhythm, no gallop/murmur, no JVD Abdomen: normal bowel sounds, soft, non tender, no organomegaly, non distended , no mass, no scars Extremities: no cyanosis, no clubbing Skin: no rash, no lesions, no ulcers Neurologic/Psychiatric: alert, oriented x 3, responsive Lymphatic: no neck adenopathy, no groin adenopathy Microbiology Date/Time Source Procedure Growth Status 11/28/17 14:35 Nasopharynx Influenza Types A,B Antigen (TOMER) - Final Complete 11/28/17 19:40 Stool Stool Culture Pending Resulted 11/28/17 19:40 Stool Clostridium difficile Toxin Assay - Final Resulted Laboratory Tests Test 11/28/17 15:35 11/28/17 19:40 11/29/17 06:55 HIV (1&2) Antibody Rapid Negative (NEGATIVE) Giardia Antigen Pending White Blood Count 14.6 K/UL (4.8-10.8) H Red Blood Count 3.78 M/UL (4.20-5.40) L Hemoglobin 11.0 G/DL (12.0-16.0) L Hematocrit 35.9 % (37.0-47.0) L Mean Corpuscular Volume 95 FL (80-99) Mean Corpuscular Hemoglobin 29.0 PG (27.0-31.0) Mean Corpuscular Hemoglobin Concent 30.6 G/DL (32.0-36.0) L Red Cell Distribution Width 13.5 % (11.6-14.8) Platelet Count 237 K/UL (150-450) Mean Platelet Volume 7.0 FL (6.5-10.1) Neutrophils (%) (Auto) 79.4 % (45.0-75.0) H Lymphocytes (%) (Auto) 17.2 % (20.0-45.0) L Monocytes (%) (Auto) 3.0 % (1.0-10.0) Eosinophils (%) (Auto) 0.3 % (0.0-3.0) Basophils (%) (Auto) 0.1 % (0.0-2.0) Sodium Level 138 MMOL/L (136-145) Potassium Level 4.1 MMOL/L (3.5-5.1) Chloride Level 102 MMOL/L (98-107) Carbon Dioxide Level 21 MMOL/L (21-32) Anion Gap 15 mmol/L (5-15) Blood Urea Nitrogen 10 mg/dL (7-18) Creatinine 0.9 MG/DL (0.55-1.30) Estimat Glomerular Filtration Rate > 60 mL/min (>60) Glucose Level 297 MG/DL (74-106) H Calcium Level 7.3 MG/DL (8.5-10.1) L Total Bilirubin 0.3 MG/DL (0.2-1.0) Aspartate Amino Transf (AST/SGOT) 34 U/L (15-37) Alanine Aminotransferase (ALT/SGPT) 21 U/L (12-78) Alkaline Phosphatase 169 U/L (46-116) H Total Protein 5.9 G/DL (6.4-8.2) L Albumin 2.2 G/DL (3.4-5.0) L Globulin 3.7 g/dL Albumin/Globulin Ratio 0.6 (1.0-2.7) L Current Medications Medications (Trade) Dose Ordered Sig/Usha Route PRN Reason Start Time Stop Time Status Last Admin Dose Admin Acetaminophen (Tylenol) 650 mg Q4H PRN ORAL Mild Pain/Temp > 100.5 11/26/17 19:45 12/26/17 19:44 11/27/17 05:07 Aspirin (ASA) 81 mg DAILY ORAL 11/27/17 09:00 12/27/17 08:59 11/29/17 09:28 Azithromycin (Zithromax) 250 mg DAILY@1400 ORAL 11/28/17 14:00 12/02/17 23:59 11/28/17 13:30 Dextrose (Dextrose 50%) STAT PRN IV Hypoglycemia 11/28/17 13:15 12/28/17 13:14 Heparin Sodium (Porcine) (Heparin 5000 units/ml) 5,000 units EVERY 12 HOURS SUBQ 11/26/17 21:00 12/26/17 20:59 11/29/17 09:28 Insulin Aspart (NovoLOG) BEFORE MEALS AND HS SUBQ 11/28/17 16:30 12/28/17 16:29 11/29/17 12:22 Insulin Detemir (Levemir) 28 units DAILY SUBQ 11/29/17 09:00 12/29/17 08:59 11/29/17 09:32 Morphine Sulfate (Morphine Sulfate) 2 mg Q4H PRN IVP Severe Pain Scale 7-10 11/26/17 19:45 12/03/17 19:44 11/29/17 06:31 Nicotine (Nicoderm) 1 patch Q24H TDERMAL 11/26/17 21:00 12/26/17 20:59 11/28/17 21:29 Nystatin (Nystatin) 5 ml QID ORAL 11/28/17 18:00 12/05/17 17:59 11/29/17 12:52 Ondansetron HCl (Zofran) 4 mg Q4H PRN IVP Nausea & Vomiting 11/26/17 19:45 12/26/17 19:44 11/29/17 10:39 Piperacillin Sod/ Tazobactam Sod 3.375 gm/Sodium Chloride 110 ml @ 27.5 mls/hr EVERY 8 HOURS IVPB 11/28/17 15:30 12/03/17 15:29 11/29/17 06:22 Sodium Chloride 1,000 ml @ 125 mls/hr Q8H IV 11/26/17 21:00 12/26/17 20:59 11/28/17 21:35 Gino Llanes M.D. Nov 29, 2017 13:28
[2017-11-29] MEDS: Azithromycin 250mg tab ORAL SCH (15:29)
[2017-11-29] MEDS ORDERED: HYDROcodone/Acetamin 10/325 tab ORAL PRN (17:00)
[2017-11-29] MEDS ORDERED: Morphine Sulfate 2mg/ml Inj IVP PRN ×2 (17:00→19:45)
--- NOTE | 2017-11-29 20:28 | Pulmonology Progress Note ---
Assessment/Plan Assessment/Plan 1. Gastroparesis with intractable nausea, vomiting, and abdominal pain. 2. Diabetes, poor control 3. RLL pneumonia 4. Hyperlipidemia. 5. CKD 3 WBC still high disc w ID; lesvia Richardson IVF increased insulin reviewed GI notes, appreciated CXR am Subjective Cardiovascular: Reports: chest pain Gastrointestinal/Abdominal: Reports: nausea, diarrhea Allergies: Coded Allergies: No Known Allergies (Verified Allergy, Mild, 05/04/10) Objective Last 24 Hour Vital Signs Date Time Temp Pulse Resp B/P (MAP) Pulse Ox O2 Delivery O2 Flow Rate FiO2 11/29/17 18:12 75 140/71 11/29/17 15:58 97.9 73 19 151/74 95 11/29/17 11:50 145/87 11/29/17 11:46 98.2 79 19 176/88 97 11/29/17 08:00 97.7 79 20 153/77 98 11/29/17 04:00 97.9 74 20 131/52 97 Room Air 11/29/17 00:00 98.6 18 117/65 96 Intake and Output 11/28/17 11/29/17 19:00 07:00 Intake Total 1430 ml Balance 1430 ml Intake Oral 180 ml IV Total 1250 ml # Voids 4 3 # Bowel Movements 2 General Appearance: no acute distress Respiratory/Chest: crackles/rales Cardiovascular: normal rate Abdomen: soft, non tender Microbiology Date/Time Source Procedure Growth Status 11/28/17 14:35 Nasopharynx Influenza Types A,B Antigen (TOMER) - Final Complete 11/28/17 19:40 Stool Stool Culture Pending Resulted 11/28/17 19:40 Stool Clostridium difficile Toxin Assay - Final Resulted Laboratory Tests 11/29/17 06:55: White Blood Count 14.6H, Red Blood Count 3.78L, Hemoglobin 11.0L, Hematocrit 35.9L, Mean Corpuscular Volume 95, Mean Corpuscular Hemoglobin 29.0, Mean Corpuscular Hemoglobin Concent 30.6L, Red Cell Distribution Width 13.5, Platelet Count 237, Mean Platelet Volume 7.0, Neutrophils (%) (Auto) 79.4H, Lymphocytes (%) (Auto) 17.2L, Monocytes (%) (Auto) 3.0, Eosinophils (%) (Auto) 0.3, Basophils (%) (Auto) 0.1, Sodium Level 138, Potassium Level 4.1, Chloride Level 102, Carbon Dioxide Level 21, Anion Gap 15, Blood Urea Nitrogen 10, Creatinine 0.9, Estimat Glomerular Filtration Rate > 60, Glucose Level 297H, Calcium Level 7.3L, Total Bilirubin 0.3, Aspartate Amino Transf (AST/SGOT) 34, Alanine Aminotransferase (ALT/SGPT) 21, Alkaline Phosphatase 169H, Total Protein 5.9L, Albumin 2.2L, Globulin 3.7, Albumin/Globulin Ratio 0.6L Current Medications Medications (Trade) Dose Ordered Sig/Usha Route PRN Reason Start Time Stop Time Status Last Admin Dose Admin Acetaminophen (Tylenol) 650 mg Q4H PRN ORAL Mild Pain/Temp > 100.5 11/26/17 19:45 12/26/17 19:44 11/27/17 05:07 Acetaminophen/ Hydrocodone Bitart ([place] 10/325) 1 ea Q4H PRN ORAL For Moderate to Severe Pain 11/29/17 17:00 12/06/17 16:59 Amlodipine Besylate (Norvasc) 2.5 mg BID ORAL 11/29/17 18:00 12/29/17 17:59 11/29/17 18:12 Aspirin (ASA) 81 mg DAILY ORAL 11/27/17 09:00 12/27/17 08:59 11/29/17 09:28 Azithromycin (Zithromax) 250 mg DAILY@1400 ORAL 11/28/17 14:00 12/02/17 23:59 11/29/17 15:29 Dextrose (Dextrose 50%) STAT PRN IV Hypoglycemia 11/28/17 13:15 12/28/17 13:14 Heparin Sodium (Porcine) (Heparin 5000 units/ml) 5,000 units EVERY 12 HOURS SUBQ 11/26/17 21:00 12/26/17 20:59 11/29/17 09:28 Insulin Aspart (NovoLOG) BEFORE MEALS AND HS SUBQ 11/28/17 16:30 12/28/17 16:29 11/29/17 17:22 Insulin Detemir (Levemir) 36 units DAILY SUBQ 11/30/17 09:00 12/30/17 08:59 Morphine Sulfate (Morphine Sulfate) 2 mg Q4H PRN IVP Breakthrough Pain 11/29/17 19:45 12/06/17 19:44 Nicotine (Nicoderm) 1 patch Q24H TDERMAL 11/26/17 21:00 12/26/17 20:59 11/28/17 21:29 Nystatin (Nystatin) 5 ml QID ORAL 11/28/17 18:00 12/05/17 17:59 11/29/17 18:12 Ondansetron HCl (Zofran) 4 mg Q4H PRN IVP Nausea & Vomiting 11/26/17 19:45 12/26/17 19:44 11/29/17 10:39 Piperacillin Sod/ Tazobactam Sod 3.375 gm/Sodium Chloride 110 ml @ 27.5 mls/hr EVERY 8 HOURS IVPB 11/28/17 15:30 12/03/17 15:29 11/29/17 15:31 Sodium Chloride 1,000 ml @ 125 mls/hr Q8H IV 11/26/17 21:00 12/26/17 20:59 11/29/17 15:30 ARNULFO TORRES Nov 29, 2017 20:28
--- NOTE | 2017-11-29 23:28 | General Progress Note ---
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 etiology - agree with prior GI MD, would benefit from repeat colonoscopy Recommendations - check stool OB - Check stool - check stool cultures - outpatient colonoscopy Subjective Allergies: Coded Allergies: No Known Allergies (Verified Allergy, Mild, 05/04/10) Subjective Feels OK outside records reviewed patient with Nuc Med study form late 2015 --> gastroparesis Colonoscopy done late 2014 GI consult in 2016 rec repeat colonoscopy pt with chronic diarrhea Objective Last 24 Hour Vital Signs Date Time Temp Pulse Resp B/P (MAP) Pulse Ox O2 Delivery O2 Flow Rate FiO2 11/29/17 20:00 98.2 72 18 129/83 94 11/29/17 18:12 75 140/71 11/29/17 15:58 97.9 73 19 151/74 95 11/29/17 11:50 145/87 11/29/17 11:46 98.2 79 19 176/88 97 11/29/17 08:00 97.7 79 20 153/77 98 11/29/17 04:00 97.9 74 20 131/52 97 Room Air 11/29/17 00:00 98.6 18 117/65 96 Intake and Output 11/28/17 11/29/17 19:00 07:00 Intake Total 1430 ml Balance 1430 ml Intake Oral 180 ml IV Total 1250 ml # Voids 4 3 # Bowel Movements 2 Laboratory Tests 11/29/17 06:55: White Blood Count 14.6H, Red Blood Count 3.78L, Hemoglobin 11.0L, Hematocrit 35.9L, Mean Corpuscular Volume 95, Mean Corpuscular Hemoglobin 29.0, Mean Corpuscular Hemoglobin Concent 30.6L, Red Cell Distribution Width 13.5, Platelet Count 237, Mean Platelet Volume 7.0, Neutrophils (%) (Auto) 79.4H, Lymphocytes (%) (Auto) 17.2L, Monocytes (%) (Auto) 3.0, Eosinophils (%) (Auto) 0.3, Basophils (%) (Auto) 0.1, Sodium Level 138, Potassium Level 4.1, Chloride Level 102, Carbon Dioxide Level 21, Anion Gap 15, Blood Urea Nitrogen 10, Creatinine 0.9, Estimat Glomerular Filtration Rate > 60, Glucose Level 297H, Calcium Level 7.3L, Total Bilirubin 0.3, Aspartate Amino Transf (AST/SGOT) 34, Alanine Aminotransferase (ALT/SGPT) 21, Alkaline Phosphatase 169H, Total Protein 5.9L, Albumin 2.2L, Globulin 3.7, Albumin/Globulin Ratio 0.6L Height (Feet): 5 Height (Inches): 2.00 Weight (Pounds): 115 Objective WD thin woman NCAT supple CTA RR abd soft, NT, NT no edema ANURAG SOTELO Nov 29, 2017 23:28
[2017-11-30] VITALS: BP 134/76
[2017-11-30 03:43] VITALS: BP 143/70
[2017-11-30] MEDS: Piperacillin/Tazobactam 3.375 GM in NS 110 ML IVPB SCH ×2 (06:21→14:00)
[2017-11-30] MEDS: NovoLOG Insulin Flexpen SUBQ SCH ×2 (06:30→12:38)
[2017-11-30 07:44] LABS: BASOPHILS % (AUTO) 0.2 % (0.0-2.0); EOSINOPHILS % (AUTO) 0.1 % (0.0-3.0); HEMATOCRIT 33.7 % (37.0-47.0); HEMOGLOBIN 11.2 G/DL (12.0-16.0); LYMPHOCYTES % (AUTO) 18.3 % (20.0-45.0); MEAN CORPUSCULAR VOLUME 92 FL (80-99); MONOCYTES % (AUTO) 4.9 % (1.0-10.0); NEUTROPHILS % (AUTO) 76.4 % (45.0-75.0); PLATELET COUNT 265 K/UL (150-450); RED BLOOD COUNT 3.66 M/UL (4.20-5.40); RED CELL DISTRIBUTION WIDTH 13.7 % (11.6-14.8); WHITE BLOOD COUNT 10.4 K/UL (4.8-10.8)
[2017-11-30 08:03] LABS: ANION GAP 6 mmol/L (5-15); BLOOD UREA NITROGEN 7 mg/dL (7-18); CALCIUM 7.3 MG/DL (8.5-10.1); CARBON DIOXIDE 29 MMOL/L (21-32); CHLORIDE 106 MMOL/L (98-107); CREATININE 0.7 MG/DL (0.55-1.30); POTASSIUM 3.5 MMOL/L (3.5-5.1); SODIUM 141 MMOL/L (136-145)
[2017-11-30 08:30] VITALS: BP 138/67
[2017-11-30] MEDS ORDERED: Levemir Flexpen SUBQ SCH (09:00)
[2017-11-30] MEDS: Aspirin Baby 81mg ORAL SCH (10:02)
[2017-11-30] MEDS: Nystatin Susp 500,000 units/5ml ORAL SCH ×2 (10:02→12:37)
[2017-11-30] MEDS: Heparin 5000 units/ml inj SUBQ SCH (10:13)
[2017-11-30 11:52] VITALS: BP 180/80
[2017-11-30] MEDS ORDERED: AUGMENTIN 875-1 EAC1 ORAL (14:23)
[2017-11-30] MEDS ORDERED: ZITHROMAX250 MG ORAL (14:23)
[2017-11-30] MEDS: Azithromycin 250mg tab ORAL SCH (15:19)
[2017-11-30] MEDS ORDERED: LEVEMIR FL100 UNIT/1 SUBQ (15:37)
[2017-11-30] MEDS ORDERED: Tubing IV Secondary IV ONE (16:09)
--- NOTE | 2017-11-30 19:46 | Infectious Diseases Prog Note ---
Assessment/Plan Problems: (1) Aspiration pneumonia Assessment & Plan: suspect due to recurrent vomiting, await sputum culture, screening for influenza is negative , continue zosyn empirically , continue zithromax for 5 days total . recommend aspiration precaution . (2) Sepsis Assessment & Plan: with fever and worsening leukocytosis , suspect due to aspiration pneumonia , await blood culture, continue zosyn empiric coverage . (3) Uncontrolled diabetes mellitus Assessment & Plan: recommend tight glycemic control to keep blood glucose between 100-140 . (4) Intractable nausea and vomiting Assessment & Plan: due to the above , continue supportive care and nausea meds (5) Thrush, oral Assessment & Plan: suspect due to poorly controled DM, will start oral nystatin and screen for HIV (6) Diarrhea Assessment & Plan: infectious VS absorption related pathology, will send stool for culture, O/P, and C diff , may need colonoscopy with biopsy for further eval Subjective Constitutional: Reports: no symptoms HEENT: Reports: no symptoms Respiratory: Reports: no symptoms Breasts: Reports: no symptoms Cardiovascular: Reports: no symptoms Gastrointestinal/Abdominal: Reports: no symptoms Genitourinary: Reports: no symptoms Neurologic: Reports: no symptoms Psychiatric: Reports: no symptoms Skin: Reports: no symptoms Endocrine: Reports: no symptoms Hematologic: Reports: no symptoms Musculoskeletal: Reports: no symptoms Allergies: Coded Allergies: No Known Allergies (Verified , 05/04/10) Objective Vital Signs Last 24 Hour Vital Signs Date Time Temp Pulse Resp B/P (MAP) Pulse Ox O2 Delivery O2 Flow Rate FiO2 11/30/17 11:52 97.7 75 20 180/80 98 11/30/17 10:03 76 138/67 11/30/17 08:30 97.5 76 20 138/67 98 11/30/17 03:43 97.5 62 20 143/70 99 Room Air 11/30/17 00:00 98.1 72 18 134/76 95 11/29/17 20:00 98.2 72 18 129/83 94 Height (Feet): 5 Height (Inches): 2.00 Weight (Pounds): 115 General Appearance: WD/WN, no acute distress HEENT: normocephalic, atraumatic, anicteric, mucous membranes moist, PERRL Respiratory/Chest: chest wall non-tender, lungs clear, normal breath sounds, no respiratory distress, no accessory muscle use Cardiovascular: normal peripheral pulses, normal rate, regular rhythm, no gallop/murmur, no JVD Abdomen: normal bowel sounds, soft, non tender, no organomegaly, non distended , no mass, no scars Genitourinary: normal external genitalia Extremities: no cyanosis, no clubbing Skin: no rash, no lesions, no ulcers Microbiology Date/Time Source Procedure Growth Status 11/28/17 15:40 Blood Blood Culture - Preliminary NO GROWTH AFTER 24 HOURS Resulted 11/28/17 15:35 Blood Blood Culture - Preliminary NO GROWTH AFTER 24 HOURS Resulted 11/28/17 14:35 Nasopharynx Influenza Types A,B Antigen (TOMER) - Final Complete 11/28/17 19:40 Stool Stool Culture Pending Resulted 11/28/17 19:40 Stool Clostridium difficile Toxin Assay - Final Resulted Laboratory Tests Test 11/30/17 05:05 White Blood Count 10.4 K/UL (4.8-10.8) Red Blood Count 3.66 M/UL (4.20-5.40) L Hemoglobin 11.2 G/DL (12.0-16.0) L Hematocrit 33.7 % (37.0-47.0) L Mean Corpuscular Volume 92 FL (80-99) Mean Corpuscular Hemoglobin 30.5 PG (27.0-31.0) Mean Corpuscular Hemoglobin Concent 33.1 G/DL (32.0-36.0) Red Cell Distribution Width 13.7 % (11.6-14.8) Platelet Count 265 K/UL (150-450) Mean Platelet Volume 6.5 FL (6.5-10.1) Neutrophils (%) (Auto) 76.4 % (45.0-75.0) H Lymphocytes (%) (Auto) 18.3 % (20.0-45.0) L Monocytes (%) (Auto) 4.9 % (1.0-10.0) Eosinophils (%) (Auto) 0.1 % (0.0-3.0) Basophils (%) (Auto) 0.2 % (0.0-2.0) Sodium Level 141 MMOL/L (136-145) Potassium Level 3.5 MMOL/L (3.5-5.1) Chloride Level 106 MMOL/L (98-107) Carbon Dioxide Level 29 MMOL/L (21-32) Anion Gap 6 mmol/L (5-15) Blood Urea Nitrogen 7 mg/dL (7-18) Creatinine 0.7 MG/DL (0.55-1.30) Estimat Glomerular Filtration Rate > 60 mL/min (>60) Glucose Level 168 MG/DL (74-106) #H Calcium Level 7.3 MG/DL (8.5-10.1) Gino Baker M.D. Nov 30, 2017 19:46
--- NOTE | 2017-11-30 23:45 | Discharge Summary ---
DATE OF ADMISSION: 11/26/2017 DATE OF DISCHARGE: 11/30/2017 Note, the patient was admitted by Dr. Ta Cade and I am substituting for him on the day of discharge and dictating this summary. PERTINENT HISTORY: The patient is a 57-year-old lady, who has insulin-dependent diabetes presents with abdominal pain, cramping, nausea, and vomiting. She has chronic diarrhea and has been told in the past she has diabetic gastroparesis. She also tells me now that she had a cough. PERTINENT PHYSICAL FINDINGS: VITAL SIGNS: She was oriented and had a temperature of 101.7 on arrival. LUNGS: Decreased at the bases. No wheezes. HEART: Regular rhythm. ABDOMEN: Soft, a bit tender. Positive bowel sounds. EXTREMITIES: No edema. NEUROLOGIC: Negative. COURSE IN THE HOSPITAL: The patient was hydrated and started on empiric antibiotics. She had a BUN of 25, creatinine 1.5, and a glucose of 481 on admission. Initial chest x-ray was negative. Repeat chest x-ray showed a questionable patchy infiltrate. She was seen in GI consultation by Dr. Holder and she has had multiple GI evaluations in the past and no procedures were indicated on this admission. With hydration, her BUN fell to 7 and 0.7 on discharge. Her white count karen as high as 14.8 and fell to 10.4. She had no fever or chills. She felt better on the day of discharge. Her lungs were clear. Heart with regular rhythm. Abdomen was soft without organomegaly or masses. Extremities with no edema. She was alert and ambulatory and felt better and was able to tolerate an oral diet and was discharged home in stable condition. FINAL DIAGNOSES: 1. Dehydration. 2. Insulin-dependent diabetes with hyperglycemia. 3. Diabetic gastropathy. 4. Chronic diarrhea. 5. Community-acquired pneumonia. 6. Dehydration. 7. Mild anemia. DISCHARGE DISPOSITION: She is discharged home on a diabetic diet. MEDICATIONS: Per the discharge medication list. She is instructed to follow up with her primary care physician on discharge who is not in this hospital. Her medications per the discharge medication list, which includes her prior to admission medications and Augmentin 850 mg b.i.d. for 7 days and Zithromax 250 mg daily for 3 more days. FOLLOWUP: Follow up with her primary care physician. Mp Chavez M.D. DR: JYOTHI JOB#: [id number] CC:
== END 2017-11-30 16:10 | disposition home or self-care (01) | DRG 48 ==
LOC: EMR 09:30 → EDBEDREQ 15:37 → 4E 16:04
DX: E11.43 Type 2 diabetes mellitus with diabetic autonomic (poly)neuropathy (principal); J18.9 Pneumonia, unspecified organism; B37.0 Candidal stomatitis; E11.22 Type 2 diabetes mellitus with diabetic chronic kidney disease; N18.3 Chronic kidney disease, stage 3 (moderate); E11.65 Type 2 diabetes mellitus with hyperglycemia; K31.84 Gastroparesis; E86.0 Dehydration; J44.9 Chronic obstructive pulmonary disease, unspecified; Z72.0 Tobacco use; E78.5 Hyperlipidemia, unspecified; I12.9 Hypertensive chronic kidney disease with stage 1 through stage 4 chronic kidney disease, or unspecified chronic kidney disease; I10 Essential (primary) hypertension; E78.00 Pure hypercholesterolemia, unspecified; K52.9 Noninfective gastroenteritis and colitis, unspecified; K31.9 Disease of stomach and duodenum, unspecified; D64.9 Anemia, unspecified; Z79.4 Long term (current) use of insulin
CPT/HCPCS: 36415; 36600; 71045; 74018; 80048; 80053; 80061; 80076; 81003; 82009; 82803; 82962; 83036; 83690; 83735; 84443; 84484; 85007; 85025; 86703; 86710; 87040; 87045; 87324; 87329; 93005; 99285; J1815; J2405; S5561